=== PATIENT | male | born 1985 | race Caucasian/White ===

== ENCOUNTER 2019-08-03 14:14 | Emergency (ER) | payer MEDICAID, SELFPAY ==
[2019-08-03 14:34] VITALS: BP 128/82; PULSE 88; RESP 18; TEMP 36.8; O2SAT 97; BMI 41.5
--- NOTE | 2019-08-03 14:40 | XR_ITS ---
PROCEDURE: XR CHEST PORTABLE CLINICAL HISTORY: cough/respiratory symptoms COMPARISON: No exams were available for comparison FINDINGS: There is borderline cardiomegaly without failure. The lungs are clear without infiltrates, suspicious nodules, or pleural effusions. No acute bony abnormalities. IMPRESSION: Borderline cardiomegaly otherwise negative Dictated by: Jose Lr MD 08/03/2019 15:39 Electronically signed by Jose Lr MD in [place] 08/03/2019 15:39
[2019-08-03 14:49] LABS: Hematocrit 42.6 % (42.0-52.0); Hemoglobin 13.9 g/dL (14.1-18.0); Mean Corpuscular HGB Conc 32.7 g/dL (31.8-35.4); Mean Corpuscular Hemoglobin 31.4 pg (27.0-31.2); Mean Corpuscular Volume 96.1 fl (80-94); Mean Platelet Volume 6.9 fl (7.4-10.4); Platelet Count 370 K/mm3 (142-424); Red Blood Count 4.43 M/mm3 (4.60-6.20); Red Cell Distribution Width 14.8 % (11.5-17.5)
[2019-08-03 14:50] LABS: Basophils # 0.1 K/mm3 (0-0.2); Basophils % 0.9 % (0.1-2.0); Eosinophils # 0.3 K/mm3 (0.0-0.4); Eosinophils % 3.6 % (0.1-12.0); Lymphocytes # 2.2 K/mm3 (0.7-4.5); Lymphocytes % 27.8 % (10-50); Monocytes # 0.3 K/mm3 (0.1-1.0); Neutrophils # 5.1 K/mm3 (1.8-7.8); Neutrophils % 63.7 % (37.0-80.0)
--- NOTE | 2019-08-03 15:24 | HMH.COUGH ---
Cough Clinic HPI - History of Present Illness Complaint:: Body aches, nausea vomiting and diarrhea HPI:: 34-year-old male with several days of GI symptoms including upset stomach and diarrhea. Has also had body aches, fatigue, fever. Patient's had similar symptoms preceding his by day or 2. Complains of cough though he also smokes and states that it is baseline smoker's cough. Worse in the morning in the evening. Says he feels somewhat better today. Of note, his works at [employer] and has had remote contact with prior coronavirus cases. Onset (ago): day(s) Severity: mild Home Medications: Home Medications Medication Instructions Recorded Confirmed Type lisinopril 20 1 tab PO DAILY 12/29/17 08/03/19 History mg-hydrochlorothiazide 12.5 mg tablet Allergies/Adverse Reactions: Allergies Allergy/AdvReac Type Severity Reaction Status Date / Time No Known Drug Allergies Allergy Verified 08/03/19 14:33 NO KNOWN ALLERGIES Allergy Uncoded 09/17/18 16:19 Cough Clinic Triage - Symptoms Fever History: No Chills: No Myalgia: Yes Nasal Drainage: Yes Sore Throat: No Productive Cough: No Non-productive Cough: Yes Ear or Sinus Pain: No Joint Pain: No Chest Pain: No Rash: No Shortness of Breath: No Nausea or Vomitting: Yes (vomiting) Headache: Yes Abdominal Pain: No Diarrhea: Yes - Exposure History Foreign Travel: No Direct Contact with COVID-19 Patient: No - Risk Factors Greater than 60 Years Old: No COPD: No Diabetes: No Heart Disease: No Home Oxygen Use: No Chronic Renal Disease: No Chronic Liver Disease: No Neurologic/Neurodevelopmental/intellectual disability: No Other Chronic Diseases: No Current Smoker: Yes Former Smoker: No Cough Clinic History I have reviewed the patient's past medical history: Yes Medical History: Reports:: Anxiety, Depression, Hypertension Laterality Cases: Bilateral: Tonsillectomy, Other Amputation: No Fractures: No - Social History Smoking Status: Current every day smoker Tobacco Type: cigarettes # Packs/Day (cigarettes): 1 Alcohol Intake: former Substance Use Type: denies use Occupational Status: employed Housing: house Household Members: spouse, children - Psychiatric History Pschychiatric History:: Reports:: Anxiety, Depression Family Hx:: Hypertension ROS Obtained: Yes Systems reviewed as appropriate & no additional complaints Cough Clinic Exam - General General appearance: alert, in no apparent distress - Head Head exam: atraumatic, normocephalic, normal inspection - Eye Eye exam: Present: normal appearance, PERRL, EOMI - ENT ENT exam: Present: normal exam, normal oropharynx, mucous membranes moist, TM's normal bilaterally, normal external ear exam - Neck Neck exam: Present: normal inspection, full ROM, trachea midline. Absent: meningismus, lymphadenopathy - Respiratory Respiratory exam: Present: normal lung sounds bilaterally. Absent: respiratory distress - Cardiovascular Cardiovascular exam: Present: regular rate, normal rhythm. Absent: JVD - Neurological Exam Neurological exam: Present: alert, oriented X3 Cough Clinic MDM Vital Signs: 08/03/19 14:34 08/03/19 16:04 Temperature 98.2 F 98.2 F Temperature Source Oral Temporal Artery Scan Pulse Rate 73 Pulse Rate [Brachial] 88 Respiratory Rate 18 18 Blood Pressure 143/91 H Blood Pressure [Left Arm] 128/82 Blood Pressure Mean [Left Arm] 97 Blood Pressure Source Automatic Cuff Blood Pressure Source [Left Arm] Automatic Cuff Blood Pressure Position Sitting Blood Pressure Position [Left Arm] Sitting 02 Sat by Pulse Oximetry 97 Oxygen Delivery Method Room Air - Lab Data Lab Results 08/03/19 14:45: WBC 8.0, RBC 4.43 L, Hgb 13.9 L, Hct 42.6, MCV 96.1 H, MCH 31.4 H, MCHC 32.7, RDW 14.8, Plt Count 370, MPV 6.9 L, Neut % (Auto) 63.7, Lymph % (Auto) 27.8, [place] % (Auto) 4.0, Eos % (Auto) 3.6, Baso % (Auto) 0.9, Neut # (Auto) 5.1, Lymph # (Auto) 2.2,
[2019-08-03 16:04] VITALS: BP 143/91; PULSE 73; RESP 18; TEMP 36.8
== END 2019-08-03 16:04 | disposition home or self-care (01) ==
PROVIDERS: Emergency Provider Internal Medicine Adolescent Medicine; PCP Internal Medicine Adolescent Medicine
DX: K52.9 Noninfective gastroenteritis and colitis, unspecified (principal); I10 Essential (primary) hypertension; F41.9 Anxiety disorder, unspecified; Z90.09 Acquired absence of other part of head and neck; F17.210 Nicotine dependence, cigarettes, uncomplicated
CPT/HCPCS: 36415; 71045; 85025; 87275; 87276; 99201; 99213

== ENCOUNTER 2019-10-20 07:31 | Emergency (ER) | payer MEDICAID, SELFPAY ==
[2019-10-20 07:36] VITALS: BP 176/94; PULSE 95; RESP 18; TEMP 36.6; O2SAT 97; BMI 41.5
[2019-10-20 07:56] LABS: Basophils % 0.6 % (0.1-2.0); Eosinophils # 0.2 K/mm3 (0.0-0.4); Hemoglobin 16.5 g/dL (14.1-18.0); Lymphocytes # 2.2 K/mm3 (0.7-4.5); Lymphocytes % 27.8 % (10-50); Mean Corpuscular HGB Conc 36.6 g/dL (31.8-35.4); Mean Corpuscular Hemoglobin 33.2 pg (27.0-31.2); Mean Corpuscular Volume 90.8 fl (80-94); Mean Platelet Volume 7.3 fl (7.4-10.4); Monocytes # 0.2 K/mm3 (0.1-1.0); Monocytes % 2.7 % (1.7-9.3); Neutrophils # 5.2 K/mm3 (1.8-7.8); Neutrophils % 66.8 % (37.0-80.0); Platelet Count 235 K/mm3 (142-424); Red Blood Count 4.95 M/mm3 (4.60-6.20); Red Cell Distribution Width 14.4 % (11.5-17.5); White Blood Count 7.8 K/mm3 (4.8-10.8)
[2019-10-20 08:00] LABS: Chloride 97 mmol/L (98-107); Sodium 139 mmol/L (136-145)
[2019-10-20 08:01] LABS: Potassium 2.9 mmoL/L (3.5-5.1)
[2019-10-20 08:03] LABS: Alanine Aminotransferase 59 U/L (12-78); Alkaline Phosphatase 68 U/L (38-126); Anion Gap 13.9 mEq/L (5-15); Aspartate Amino Transferase 84 U/L (17-59); Bilirubin,Total 0.7 mg/dl (0.2-1.3); Blood Urea Nitrogen 11 mg/dl (9-20); Calcium 8.8 mg/dl (8.4-10.2); Carbon Dioxide 31 mmol/L (22.0-30.0); Creatinine Clearance Estimated 103 mL/min (50-200); Estimated Glomerular Filt Rate 98 ml/min (>60); GFR (African American) 118 ML/MIN (>60); Glucose 98 mg/dl (74-100)
[2019-10-20 08:04] LABS: Albumin Level 4.4 g/dl (3.5-5.0); Albumin/Globulin Ratio 1.3 (1.1-1.8); Globulin 3.4 g/dL (1.3-3.2); Total Protein,Serum 7.8 g/dl (6.3-8.2)
--- NOTE | 2019-10-20 08:10 | PC.NURSE ---
notified ER MD of potassium level
--- NOTE | 2019-10-20 08:15 | PC.NURSE ---
notified lab of new orders
[2019-10-20 08:25] LABS: Amylase 81 U/L (30-110); Lipase 123 U/L (23-300)
--- NOTE | 2019-10-20 08:44 | HMH.EDNVD ---
ED Disposition Clinical Impression: Gastroenteritis, Acute gastroenteritis Disposition: Home, Self-Care Condition on Discharge: Good Instructions: DI for Nausea -- Adult, DI for Nausea -- Child, DI for Diarrhea and Traveler's Diarrhea -- Adult, DI for Diarrhea and Traveler's Diarrhea -- Child Prescriptions: Promethazine HCl 50 mg PO TID 6 Days #20 tab Transmission Status: Pending to [facility] [facility] #[id number] Referrals: Provider,Referral, [Primary Care Provider] - - Critical Care Critical Care Time: No Attestation: On 10/20/19, the high probability of a clinically significant, sudden or life threatening deterioration of the following system(s) required my full and direct attention, intervention and personal management. The time I documented below is in addition to time spent performing reported procedures but includes the following listed in this critical care notation. Medical Decision Making - Medical Records Medical records reviewed: Yes: I reviewed the patient's medical records. - Naman Inquiry Pt receiving controlled substance: No Vital Signs: 10/20/19 07:36 Temperature 97.9 F Temperature Source Oral Pulse Rate [Right Radial] 95 H Respiratory Rate 18 Blood Pressure [Right Arm] 176/94 H Blood Pressure Mean [Right Arm] 121 Blood Pressure Source [Right Arm] Automatic Cuff Blood Pressure Position [Right Arm] Sitting 02 Sat by Pulse Oximetry 97 Oxygen Delivery Method Room Air - Lab Data Lab Results 10/20/19 07:50: WBC 7.8, RBC 4.95, Hgb 16.5, Hct 45.0, MCV 90.8, MCH 33.2 H, MCHC 36.6 H, RDW 14.4, Plt Count 235, MPV 7.3 L, Neut % (Auto) 66.8, Lymph % (Auto) 27.8, [place] % (Auto) 2.7, Eos % (Auto) 2.0, Baso % (Auto) 0.6, Neut # (Auto) 5.2, Lymph # (Auto) 2.2, [place] # (Auto) 0.2, Eos # (Auto) 0.2, Baso # (Auto) 0.0 10/20/19 07:50: Sodium 139, Potassium 2.9 L*, Chloride 97 L, Carbon Dioxide 31 H, Anion Gap 13.9, BUN 11, Creatinine 0.90, Estimated Creat Clear 103, Estimated GFR 98, Est GFR ( Amer) 118, Glucose 98, Calcium 8.8, Total Bilirubin 0.7, AST 84 H, ALT 59, Alkaline Phosphatase 68, Total Protein 7.8, Albumin 4.4, Globulin 3.4 H, Albumin/Globulin Ratio 1.3 10/20/19 07:50: Amylase 81, Lipase 123 Result diagrams: 10/20/19 07:50 10/20/19 07:50 Orders (Tests/Meds): ED MEDICATIONS Generic Name Dose Route Start Last Admin Trade Name Freq PRN Reason Stop Dose Admin Sodium Chloride 1,000 mls @ 999 mls/hr 10/20/19 07:45 10/20/19 07:52 Sod Chlor 0.9% 1000ml Bag IV 10/20/19 08:45 999 mls/hr .Q1H1M OLIVIA Administration Discontinued Medications Generic Name Dose Route Start Last Admin Trade Name Freq PRN Reason Stop Dose Admin Ondansetron HCl 4 mg 10/20/19 07:44 10/20/19 07:52 Zofran 4mg/2ml Vial IV 10/20/19 07:45 4 mg ONCE ONE Administration ORDERS Category Date Time Status Diarrhea 23 Panel, PCR Stat Lab 10/20/19 07:44 Ordered Medical Decision Narrative: Patient improved with antibiotics Nausea/Vomiting/Diarrhea HPI - General Chief complaint: Nausea/Vomiting/Diarrhea Stated complaint: Vomiting and diarrhea Time Seen by Provider: 10/20/19 08:45 Mode of Arrival: Ambulatory Source of Information: Patient Limitations: No Limitations Description of Symptoms (Recalled from ER Triage Doc. by RN): Pt reports vomitting and diarrhea x3 days. Pt reports 3 episodes of vomitting and diarrhea today. Pt denies presence of pain - History of Present Illness MD complaint: nausea, vomiting Onset (ago): day(s) (48hrs) Description of Vomiting: food contents, watery Description of Diarrhea: water Associated Abdominal Pain: No Severity: mild Severity scale (1-10): 3 Consistency: constant Relieving factors: none Exacerbating factors: none Context: possible food poisoning - Related Data Home Medications Medication Instructions Recorded Confirmed lisinopril 20 1 tab PO DAILY 12/29/17 08/03/19 mg-hydrochlorothiazide 12.5 mg tablet Prev
[2019-10-20 09:03] VITALS: BP 151/90; PULSE 91; RESP 16; O2SAT 97
[2019-10-20 09:08] VITALS: BP 151/90; PULSE 101; O2SAT 98
[2019-10-20 09:28] VITALS: BP 159/100; PULSE 77; RESP 16; TEMP 36.6; O2SAT 97
== END 2019-10-20 09:29 | disposition home or self-care (01) ==
PROVIDERS: Family Medicine; Emergency Provider Emergency Medicine
DX: K52.9 Noninfective gastroenteritis and colitis, unspecified (principal); F41.8 Other specified anxiety disorders; I10 Essential (primary) hypertension; F17.210 Nicotine dependence, cigarettes, uncomplicated
CPT/HCPCS: 80053; 82150; 83690; 85025; 96365; 96375; 99283; J2405

== ENCOUNTER 2020-02-15 12:17 | Emergency (ER) | payer MEDICAID, SELFPAY ==
[2020-02-15 12:28] VITALS: BP 140/90; PULSE 71; RESP 20; TEMP 36.7; O2SAT 96; BMI 26.6
--- NOTE | 2020-02-15 12:45 | HMH.EDUTC ---
[facility] [place] Disposition Clinical Impression: Sinusitis Qualifiers: Sinusitis location: unspecified location Chronicity: acute Recurrence: non-recurrent Qualified Code(s): J01.90 - Acute sinusitis, unspecified Disposition: Home, Self-Care Condition on Discharge: Good Instructions: Sinusitis, DI for Sinusitis Additional Instructions: Drink plenty of fluids. Take tylenol or ibuprofen for pain or fever. Take the medications as directed. Follow up with your regular doctor. GO TO THE ER FOR ANY WORSENING SYMPTOMS Prescriptions: Brompheniramine/Pseudoephed/Dm [Bromfed Dm Cough Syrup] 5 ml PO Q6HP PRN #240 syrup PRN Reason: Cough Transmission Status: Received by [facility] methylPREDNISolone [Medrol] 4 mg PO DIRECTED 6 Days #21 tab.ds.pk Transmission Status: Received by [facility] Azithromycin [Z-Toro 250mg Tab*] 250 mg PO UD DOSE PK #6 tab Transmission Status: Received by [facility] Referrals: Alfredo Conrad MD [Primary Care Provider] - Forms: Work/School Release Time of Disposition: 12:47 Medical Decision Making - Medical Records Medical records reviewed: No: I reviewed the patient's medical records. - Naman Inquiry Pt receiving controlled substance: No Vital Signs: 02/15/20 12:28 02/15/20 12:57 Temperature 98.1 F 98.1 F Temperature Source Oral Oral Pulse Rate 71 Pulse Rate [Radial] 71 Respiratory Rate 20 20 Blood Pressure 140/90 Blood Pressure [Right Arm] 140/90 Blood Pressure Mean [Right Arm] 106 Blood Pressure Source Automatic Cuff Blood Pressure Source [Right Arm] Automatic Cuff Blood Pressure Position Sitting Blood Pressure Position [Right Arm] Sitting 02 Sat by Pulse Oximetry 96 Oxygen Delivery Method Room Air Room Air Orders (Tests/Meds): ORDERS Category Date Time Status Covid-19 Nasal PCR ([facility]) Routine Lab 02/15/20 12:50 Received [facility] [place] HPI - General Stated complaint: possible sinus infection Time Seen by Provider: 02/15/20 12:35 Mode of Arrival: Ambulatory Source of Information: Patient Limitations: No Limitations Description of Symptoms (Recalled from Triage Doc. by RN): possible sinus infection x 2 days. HEENT Symptoms (Recalled from RN notes): Yes Resp Symptoms (Recalled from RN notes): No Skin Symptoms (Recalled from RN notes): No MS Symptoms (Recalled from RN notes): No Functional Status (Recalled from RN notes): wnl - History of Present Illness Provider Complaint: He states that for the past 2 days he has been having nasal drainage, sore throat, chilling but no fever. His coworker has had similar symptoms, but he denies any exposure to covid. - Related Data Home Medications Medication Instructions Recorded Confirmed lisinopril 20 1 tab PO DAILY 12/29/17 08/03/19 mg-hydrochlorothiazide 12.5 mg tablet Previous Rx's Medication Instructions Recorded Potassium Chloride 20 meq PO BID 5 Days #10 tablet.er 10/20/19 Promethazine HCl 50 mg PO TID 6 Days #20 tab 10/20/19 Azithromycin [Z-Toro 250mg Tab*] 250 mg PO UD DOSE PK #6 tab 02/15/20 Brompheniramine/Pseudoephed/Dm 5 ml PO Q6HP PRN #240 syrup 02/15/20 [Bromfed Dm Cough Syrup] methylPREDNISolone [Medrol] 4 mg PO DIRECTED 6 Days #21 02/15/20 tab.ds.pk Allergies Allergy/AdvReac Type Severity Reaction Status Date / Time No Known Drug Allergies Allergy Verified 08/03/19 14:33 NO KNOWN ALLERGIES Allergy Uncoded 09/17/18 16:19 - Worker's Comp Is this a Worker's Comp case?: No [facility] History - Hepatitis A Screen Drug use history?: No High risk sexual behaviors?: No History of sexually transmitted infection?: No Currently employed?: No Childcare worker?: No Do you have indoor plumbing?: Yes Do you have electricity?: Yes Attestation statement:: This patient has been screened for Hepatitis A risk factors. I have reviewed the patient's past medical history: Yes Medical History: Reports:: Anxiety, Depressio
[2020-02-15 12:57] VITALS: BP 140/90; PULSE 71; RESP 20; TEMP 36.7; O2SAT 96
== END 2020-02-15 12:58 | disposition home or self-care (01) ==
PROVIDERS: Emergency Provider Nurse Practitioner Family; PCP Internal Medicine Adolescent Medicine
DX: Z20.828 Contact with and (suspected) exposure to other viral communicable diseases (principal); J01.90 Acute sinusitis, unspecified; I10 Essential (primary) hypertension; F41.8 Other specified anxiety disorders; F17.210 Nicotine dependence, cigarettes, uncomplicated
CPT/HCPCS: 99201; U0003

== ENCOUNTER 2020-06-11 05:20 | Observation (INO) | payer OTHER, SELFPAY ==
[2020-06-11] VITALS (10 sets, daily range): BP systolic 144–200; BP diastolic 75–107; PULSE 57–83; RESP 14–20; TEMP 36.4–36.7; O2SAT 93–99; BMI 41.5; BMI 43.6
--- NOTE | 2020-06-11 05:15 | ECG_ITS ---
APPROVED REPORT Exam: Resting ECG HR:99 bpm ECG Measurements Heart Rate 99 AXES WI 152 P 79 QRSd 108 QRS 49 QT 390 T 25 QTc 500 Conclusion Normal sinus rhythm Cannot rule out Inferior infarct, age undetermined Prolonged QT Abnormal ECG Electronically signed by : Alfredo Conrad, 06/11/2020 17:46:26
--- NOTE | 2020-06-11 05:25 | XR_ITS ---
PROCEDURE: XR CHEST 2V CLINICAL HISTORY: cp Chest pain COMPARISON: CR XR CHEST PORTABLE from 08/03/2019 FINDINGS: The cardiomediastinal silhouette and pulmonary vascularity are within normal limits. The lungs are clear without infiltrates, suspicious nodules, or pleural effusions. No acute bony abnormalities. IMPRESSION: No acute findings. Dictated by: Jose Lr MD 06/11/2020 05:55 Jose Lr MD in [place] 06/11/2020 05:55
[2020-06-11 05:49] LABS: Basophils # 0.1 K/mm3 (0-0.2); Basophils % 0.7 % (0.1-2.0); Eosinophils # 0.2 K/mm3 (0.0-0.4); Eosinophils % 2.9 % (0.1-12.0); Hematocrit 43.7 % (42.0-52.0); Hemoglobin 14.5 g/dL (14.1-18.0); Lymphocytes # 1.8 K/mm3 (0.7-4.5); Lymphocytes % 29.1 % (10-50); Mean Corpuscular HGB Conc 33.2 g/dL (31.8-35.4); Mean Corpuscular Hemoglobin 33.6 pg (27.0-31.2); Mean Corpuscular Volume 101.1 fl (80-94); Mean Platelet Volume 7.2 fl (7.4-10.4); Monocytes # 0.3 K/mm3 (0.1-1.0); Monocytes % 4.6 % (1.7-9.3); Neutrophils # 3.9 K/mm3 (1.8-7.8); Neutrophils % 62.7 % (37.0-80.0); Platelet Count 228 K/mm3 (142-424); Red Blood Count 4.32 M/mm3 (4.60-6.20); Red Cell Distribution Width 15.9 % (11.5-17.5); White Blood Count 6.3 K/mm3 (4.8-10.8)
[2020-06-11 05:50] LABS: Chloride 101 mmol/L (98-107); Sodium 141 mmol/L (136-145)
[2020-06-11 05:53] LABS: Anion Gap 9.7 mEq/L (5-15); Blood Urea Nitrogen 8 mg/dl (9-20); Calcium 9.4 mg/dl (8.4-10.2); Carbon Dioxide 33 mmol/L (22.0-30.0); Creatinine Clearance Estimated 114 mL/min (50-200); Estimated Glomerular Filt Rate 111 ml/min (>60); GFR (African American) 135 ML/MIN (>60); Glucose 114 mg/dl (74-100)
[2020-06-11 06:00] LABS: Potassium 2.7 mmoL/L (3.5-5.1)
--- NOTE | 2020-06-11 06:01 | PC.NURSE ---
dayron notified of critical potassium level
[2020-06-11 06:08] LABS: Troponin I 0.04 ng/ml (0.00-0.034)
[2020-06-11 06:13] LABS: Procalcitonin 0.035 ng/mL (0.0-2.0)
--- NOTE | 2020-06-11 06:19 | ECG_ITS ---
APPROVED REPORT Exam: Resting ECG HR:58 bpm ECG Measurements Heart Rate 58 AXES IN 152 P 48 QRSd 104 QRS 32 QT 494 T -6 QTc 484 Conclusion Sinus bradycardia Minimal voltage criteria for LVH, may be normal variant Cannot rule out Inferior infarct, age undetermined Abnormal ECG Electronically signed by : Alfredo Conrad, 06/11/2020 17:46:23
--- NOTE | 2020-06-11 06:35 | HMH.EDCP ---
ED Disposition Clinical Impression: Tobacco use, Hypertensive urgency Chest pain Qualifiers: Chest pain type: precordial pain Qualified Code(s): R07.2 - Precordial pain Obesity Qualifiers: Obesity type: due to excess calories Obesity classification: adult class 3 (BMI >= 40) Serious obesity comorbidity presence: with serious comorbidity Body mass index: BMI 40.0-44.9 Qualified Code(s): E66.01 - Morbid (severe) obesity due to excess calories; Z68.41 - Body mass index [BMI]40.0-44.9, adult Disposition: Admitted as Observation Condition on Discharge: Good - Critical Care Critical Care Time: No Attestation: On 06/11/20, the high probability of a clinically significant, sudden or life threatening deterioration of the following system(s) required my full and direct attention, intervention and personal management. The time I documented below is in addition to time spent performing reported procedures but includes the following listed in this critical care notation. Medical Decision Making - Medical Records Medical records reviewed: Yes: I reviewed the patient's medical records. - Naman Inquiry Pt receiving controlled substance: No Vital Signs: 06/11/20 05:21 06/11/20 05:35 Temperature 97.6 F Temperature Source Oral Pulse Rate [Right] 77 77 Respiratory Rate 14 Blood Pressure [Right Arm] 200/102 H 144/75 H Blood Pressure Mean [Right Arm] 134 98 Blood Pressure Source [Right Arm] Manual Cuff/ Auscultation 02 Sat by Pulse Oximetry 99 97 Oxygen Delivery Method Room Air - Lab Data Lab results reviewed: Yes: I reviewed the patient's lab results. Lab Results 06/11/20 05:25: WBC 6.3, RBC 4.32 L, Hgb 14.5, Hct 43.7, MCV 101.1 H, MCH 33.6 H, MCHC 33.2, RDW 15.9, Plt Count 228, MPV 7.2 L, Neut % (Auto) 62.7, Lymph % (Auto) 29.1, [place] % (Auto) 4.6, Eos % (Auto) 2.9, Baso % (Auto) 0.7, Neut # (Auto) 3.9, Lymph # (Auto) 1.8, [place] # (Auto) 0.3, Eos # (Auto) 0.2, Baso # (Auto) 0.1 06/11/20 05:25: Sodium 141, Potassium 2.7 L*, Chloride 101, Carbon Dioxide 33 H, Anion Gap 9.7, BUN 8 L, Creatinine 0.80, Estimated Creat Clear 114, Estimated GFR 111, Est GFR ( Amer) 135, Glucose 114 H, Calcium 9.4, Troponin I 0.04 H, C-Reactive Protein 1.0, Procalcitonin 0.035 06/11/20 05:25: Triglycerides 281 H, Cholesterol 215 H, VLDL Cholesterol 56 H, HDL Cholesterol 80 H, Cholesterol/HDL Ratio 2.7 Result diagrams: 06/11/20 05:25 06/11/20 05:25 Orders (Tests/Meds): ED MEDICATIONS Generic Name Dose Route Start Last Admin Trade Name Freq PRN Reason Stop Dose Admin Sodium Chloride 1,000 mls @ 999 mls/hr 06/11/20 05:30 06/11/20 05:30 Sod Chlor 0.9% 1000ml Bag IV 06/11/20 06:30 999 mls/hr .Q1H1M OLIVIA Administration Nitroglycerin 0.4 mg 06/11/20 05:25 06/11/20 05:33 Nitroglycerin 0.4mg Sl Tablet SL 07/11/20 05:24 0.4 mg Q5MINP PRN Administration Chest Pain Discontinued Medications Generic Name Dose Route Start Last Admin Trade Name Freq PRN Reason Stop Dose Admin Aspirin 324 mg 06/11/20 05:25 06/11/20 05:27 Aspirin 81mg Chewable Tablet PO 06/11/20 05:26 324 mg ONCE ONE Administration Nitroglycerin 1 gm 06/11/20 05:36 06/11/20 05:55 Nitroglycerin 1 Gm Ointment TD 06/11/20 05:37 1 gm ONCE ONE Administration Potassium Chloride 40 meq 06/11/20 06:01 06/11/20 06:03 Potassium Chloride 20meq Tab PO 06/11/20 06:02 40 meq ONCE ONE Administration ORDERS Category Date Time Status Consult to Cardiology [CONS] Routine Cons 06/11/20 06:55 Active Complete Blood Count Auto Diff Stat Lab 06/11/20 05:25 Results Covid-19 Nasal PCR ([facility]) Routine Lab 06/11/20 05:28 Received Erythrocyte Sedimentation Rate Stat Lab 06/11/20 05:25 Results Lipid Panel Stat Lab 06/11/20 05:25 Results Troponin I Q3H Lab 06/11/20 08:30 Ordered Troponin I Q3H Lab 06/11/20 11:30 Ordered CA echo doppler complete Routine Y 06/11/20 06:53 Ordered - Radiology Data #1 Image
--- NOTE | 2020-06-11 06:53 | CA_ITS ---
APPROVED REPORT EXAM: Comprehensive 2D, Doppler, and color-flow Echocardiogram Color Worker: Ellen Capellan RVT Ht: 5 ft 5 in Wt: 250lbs BSA: 2.17 BP: 201/110 mmHg Indications: CP,OBESITY,HTN,SMOKER TDS-PT BODY HABITUS 2D Dimensions LVOT 2.90 cm (M/F) 1.5-2.5 M-Mode Dimensions RVDd 2.55 cm (0.9-2.6) LA Diam 3.41 cm (1.9-4.0) LVDd 5.54 cm (3.5-5.7) Ao Diam 2.85 cm (2.0-3.7) LVDs 3.93 cm (3.5-5.7) IVSd 0.76 cm (0.6-1.1) PWd 0.98 cm (0.6-1.1) EF (Teich) 55.20% FS 29.10% EDV (Teich) 149.90 mL ESV (Teich) 67.10 mL LV Diastology E Decel Time 153.00 (160-240 msec) E/A Ratio 1.5 MED E' 7.60 (< 7 cm/sec) E'/MED E' Ratio 12.78 (>14) LAT E' 7.90 (<10 cm/sec) E/LAT E' Ratio 12.29 (>14) Aortic Valve AO Peak GR. 4.00 mmHg Mitral Valve MV E Max [place]. 97.00 (40-130 cm/s) MV A Velocity 63.00 (40-130 cm/s) E/A Ratio 1.54 MV Decel. Time 153.00 (160-240 ms) MV PHT 45.00 ms Pulmonary Valve PV Peak Velocity 99.00 (50-150 cm/s) Tricuspid Valve TR P. Velocity 267.00 cm/s RAP Estimate 10.00 mmHg RVSP 38.40 mmHg Left Ventricle Left atrium is normal size, left ventricle is normal size, there is no concentric left ventricular hypertrophy, visually estimated ejection fraction 55% with no regional wall motion abnormality, diastolic parameters are inconclusive. Right Ventricle Right atrium and right ventricle are normal size and contractility. Aortic Valve Aortic valve is grossly normal, there is no aortic stenosis or aortic insufficiency. Mitral Valve Mitral valve is grossly normal, there is trace mitral regurgitation. Tricuspid Valve Tricuspid valve grossly normal, there is trace tricuspid regurgitation. Pulmonic Valve Pulmonic valve is poorly visualized. Great Vessels Aortic root is normal size. Pericardium No significant pericardial effusion noted. Conclusion 1. Normal left ventricular size, preserved left ventricular systolic function, visually estimated ejection fraction 55% with no regional wall motion abnormality, diastolic parameters are inconclusive. 2. Trace mitral and tricuspid regurgitation. 3. No significant pericardial effusion noted. Electronically signed by : Adolfo Cameron, 06/12/2020 13:07:49
--- NOTE | 2020-06-11 07:04 | PC.NURSE ---
vascular @ bedside for echo
[2020-06-11 07:08] LABS: Chol/HDL Ratio 2.7 (1-3.5); Cholesterol 215 mg/dl (140-200); HDL Cholesterol 80 mg/dl (40-60); Triglycerides 281 mg/dl (30-150); VLDL Cholesterol 56 mg/dL (0-40)
[2020-06-11 07:19] LABS: Direct LDL Cholesterol 73.74 mg/dL (100-129)
[2020-06-11 07:52] LABS: Erythrocyte Sedimentation Rate 21 mm/hr (0-15)
--- NOTE | 2020-06-11 08:54 | PC.NURSE ---
[facility] in with
[2020-06-11 08:59] LABS: Troponin I 0.02 ng/ml (0.00-0.034)
--- NOTE | 2020-06-11 09:03 | HMH.HP ---
*Admission Date: 06/11/20 *Chief complaint: Chest pain *History of present illness: 35-year-old white male with morbid obesity, tobacco use disorder who presented to the emergency department after some left-sided chest pain after lifting some items at work. Noticed that it was worse when he laid back. He became concerned, came to the emergency department. Initial troponin level was 0.04, given his risk factors and slightly elevated troponin level he was admitted for risk stratification and further evaluation. On my examination this morning he was much more comfortable and denied pain when he was sitting up straight. [facility] History I have reviewed the patient's past medical history: Yes Medical History: Reports:: Anxiety, Depression, Hypertension Denies:: Diabetes Mellitus Type 1, Diabetes Mellitus Type 2 *Have you ever received a pneumonia vaccine?: No *Have you received a flu vaccine this season?: No Laterality Cases: Bilateral: Tonsillectomy, Other Amputation: No Fractures: No - *Social History Smoking Status: Current every day smoker Tobacco Type: cigarettes # Packs/Day (cigarettes): 1 Alcohol Intake: never Substance Use Type: denies use *Occupational Status:: employed Housing: house Household Members: spouse, children *Travel in the last 8 weeks: None - Psychiatric History Pschychiatric History:: Reports:: Anxiety, Depression Family Hx:: Hypertension Review of Systems - Review of Systems Review of systems:: pertinent systems reviewed and negative unless documented below - *Neurologic Denies localized weakness, Denies tingling/numbness/burning sensations, Denies seizure-like activity, Denies sensory deficit Meds Home Medications Medication Instructions Recorded Confirmed Type lisinopril 20 1 tab PO DAILY 12/29/17 06/11/20 History mg-hydrochlorothiazide 12.5 mg tablet Omeprazole [Omeprazole 40mg 40 mg PO DAILY 06/11/20 06/11/20 History Capsule] Allergies Allergy/AdvReac Type Severity Reaction Status Date / Time No Known Drug Allergies Allergy Verified 06/11/20 06:00 NO KNOWN ALLERGIES Allergy Uncoded 09/17/18 16:19 Exam Vital signs and Labs for Last 24 Hours: Temp Pulse Resp BP Pulse Ox 97.6 F 68 18 169/96 H 94 L 06/11/20 05:21 06/11/20 08:10 06/11/20 08:10 06/11/20 08:10 06/11/20 08:10 Laboratory Results - last 24 hr 06/11/20 05:25: WBC 6.3, RBC 4.32 L, Hgb 14.5, Hct 43.7, MCV 101.1 H, MCH 33.6 H, MCHC 33.2, RDW 15.9, Plt Count 228, MPV 7.2 L, Neut % (Auto) 62.7, Lymph % (Auto) 29.1, [place] % (Auto) 4.6, Eos % (Auto) 2.9, Baso % (Auto) 0.7, Neut # (Auto) 3.9, Lymph # (Auto) 1.8, [place] # (Auto) 0.3, Eos # (Auto) 0.2, Baso # (Auto) 0.1, ESR 21 H 06/11/20 05:25: Sodium 141, Potassium 2.7 L*, Chloride 101, Carbon Dioxide 33 H, Anion Gap 9.7, BUN 8 L, Creatinine 0.80, Estimated Creat Clear 114, Estimated GFR 111, Est GFR ( Amer) 135, Glucose 114 H, Calcium 9.4, Troponin I 0.04 H, C-Reactive Protein 1.0, Procalcitonin 0.035 06/11/20 05:25: Triglycerides 281 H, Cholesterol 215 H, LDL Cholesterol Direct 73.74 L, VLDL Cholesterol 56 H, HDL Cholesterol 80 H, Cholesterol/HDL Ratio 2.7 06/11/20 08:20: Troponin I 0.02 I & O for Last 24 hours: Intake & Output 06/08/20 06/09/20 06/10/20 06/11/20 11:59 11:59 11:59 11:59 Weight 250 lb - *Routine HEENT Exam Head: Present: normocephalic Eye: Present: EOMI, PERRL ENT: Present: mucous membranes moist - *Routine Neck Exam Present: supple. Absent: lymphadenopathy - *Routine Respiratory Exam Present: CTA bilaterally - *Routine Cardiovascular Exam Present: RRR - *Routine Abdominal Exam Present: soft, normoactive bowel sounds. Absent: tenderness - *Routine Extremities Exam Absent: cyanosis, clubbing, edema - *Routine Skin Exam Present: warm. Absent: rash - *Routine Neurological Exam Present: alert, oriented X3 Assessment and Plan (1) Chest pain Status: Acute Qualifiers: Chest pain ty
--- NOTE | 2020-06-11 09:09 | NM_ITS ---
APPROVED REPORT Exam: Nuclear Stress Test Indication: HTN, TOB USE, C.P., FATIGUE Patient Location: Inpatient Stress Tech: Karenalexis Sherwood MD Tech:Hanh StCAIO RT (R)(N)(M) Ht: 5 ft 4 in Wt: 260 lbs HR: 71 bpm BP: 180/96 mmHg BSA: 2.19 m2 BMI: 44.6 History: HTN, TOB USE, C.P., FATIGUE Procedure: Patient received a 0.4 mg of intravenous Lexiscan, resting heart rate 71 bpm, resting blood pressure 180/96 mmHg, with Lexiscan maximum heart rate achived was 100 bpm which is % of the maximum predicted heart rate and blood pressure was 163/96 mmHg. With Lexiscan, patient denied any complaint of chest pain. Cardiac Stress and Resting SPECT Images: Cardiac Stress and Resting SPECT images were obtained using technetium 99m Myoview 31.9 mCi stress and 10.16 mCi at rest. Low EF of 46% Reversible defect in the septum near thw base of the heart suggesting an area of ischemia Conclusion: Low EF of 46% Reversible defect in the septum near the base of the heart suggesting an area of ischemia Electronically signed by : Jose Lr MD 06/11/2020 17:35:58
--- NOTE | 2020-06-11 09:52 | HMH.CNCARD ---
History of Present Illness Consult date: 06/11/20 Requesting physician: Alfredo Conrad Consult reason: chest pain Chief complaint: chest pain History of present illness: This is a 35-year-old white gentleman who presented to the emergency department with complaints of chest pain. The patient states that he was having left-sided chest pain that he describes as an aching sensation. He states for the last week or so his left shoulder has been bothering him from heavy lifting at work and then last night he began to have the pain radiating in his chest. He states that this was an aching sensation and that with repositioning he can usually get the chest pain to stop. He states that the pain at its worse was about a 5 out of 10 in intensity. He states that he has shortness of breath with deep breaths only. He states that when he laid down he noticed that the pain was worse. He came to the emergency department because he was not sure if this was a musculoskeletal chest pain or if this could be a cardiac chest pain. His initial troponin was 0.04 and his repeat troponin was down to 0.02. His chest pain did alleviate with nitroglycerin. He denies any fever, chills, nausea, vomiting, diarrhea, PND or orthopnea. The patient denies a family history of coronary artery disease or [place]. He does have a personal history of hypertension and is a 1 to 1-1/2 pack/day smoker. He denies any hyperlipidemia or diabetes. [facility] History I have reviewed the patient's past medical history: Yes Medical History: Reports:: Anxiety, Depression, Hypertension Denies:: Diabetes Mellitus Type 1, Diabetes Mellitus Type 2 *Have you ever received a pneumonia vaccine?: No *Have you received a flu vaccine this season?: No Laterality Cases: Bilateral: Tonsillectomy, Other Amputation: No Fractures: No - *Social History Smoking Status: Current every day smoker Tobacco Type: cigarettes # Packs/Day (cigarettes): 1 Alcohol Intake: never Substance Use Type: denies use *Occupational Status:: employed Housing: house Household Members: spouse, children *Travel in the last 8 weeks: None - Psychiatric History Pschychiatric History:: Reports:: Anxiety, Depression Family Hx:: Diabetes, Hypertension Meds Home Medications Medication Instructions Recorded Confirmed Type lisinopril 20 1 tab PO DAILY 12/29/17 06/11/20 History mg-hydrochlorothiazide 12.5 mg tablet Omeprazole [Omeprazole 40mg 40 mg PO DAILY 06/11/20 06/11/20 History Capsule] Allergies Allergy/AdvReac Type Severity Reaction Status Date / Time No Known Drug Allergies Allergy Verified 06/11/20 06:00 NO KNOWN ALLERGIES Allergy Uncoded 09/17/18 16:19 Exam Vital signs and Labs for Last 24 Hours: Temp Pulse Resp BP Pulse Ox 97.6 F 68 18 169/96 H 94 L 06/11/20 05:21 06/11/20 08:10 06/11/20 08:10 06/11/20 08:10 06/11/20 08:10 Laboratory Results - last 24 hr 06/11/20 05:25: WBC 6.3, RBC 4.32 L, Hgb 14.5, Hct 43.7, MCV 101.1 H, MCH 33.6 H, MCHC 33.2, RDW 15.9, Plt Count 228, MPV 7.2 L, Neut % (Auto) 62.7, Lymph % (Auto) 29.1, [place] % (Auto) 4.6, Eos % (Auto) 2.9, Baso % (Auto) 0.7, Neut # (Auto) 3.9, Lymph # (Auto) 1.8, [place] # (Auto) 0.3, Eos # (Auto) 0.2, Baso # (Auto) 0.1, ESR 21 H 06/11/20 05:25: Sodium 141, Potassium 2.7 L*, Chloride 101, Carbon Dioxide 33 H, Anion Gap 9.7, BUN 8 L, Creatinine 0.80, Estimated Creat Clear 114, Estimated GFR 111, Est GFR ( Amer) 135, Glucose 114 H, Calcium 9.4, Troponin I 0.04 H, C-Reactive Protein 1.0, Procalcitonin 0.035 06/11/20 05:25: Triglycerides 281 H, Cholesterol 215 H, LDL Cholesterol Direct 73.74 L, VLDL Cholesterol 56 H, HDL Cholesterol 80 H, Cholesterol/HDL Ratio 2.7 06/11/20 08:20: Troponin I 0.02 I & O for Last 24 hours: Intake & Output 06/08/20 06/09/20 06/10/20 06/11/20 23:59 23:59 23:59 23:59 Weight 250 lb Narrative: EKG is sinus rhythm with a rate of 99 and old inferior WI pattern. - Constitutional
[2020-06-11 11:54] LABS: Troponin I 0.02 ng/ml (0.00-0.034)
--- NOTE | 2020-06-11 12:47 | PC.NURSE ---
nuclear staff states they are coming down to get pt soon
--- NOTE | 2020-06-11 12:49 | PC.NURSE ---
updated pt on POC
--- NOTE | 2020-06-11 12:54 | PC.NURSE ---
THEY WILL BE HERE TO DO MARIANA SCAN @ [phone]
--- NOTE | 2020-06-11 12:55 | PC.NURSE ---
pt to nuclear department for stress test, rad staff states pt will be gone 2-3 hours.
--- NOTE | 2020-06-11 13:24 | CA_ITS ---
APPROVED REPORT Exam: Pharmacologic Technologist: Karen Sherwood Ht: 5 ft 5 in Wt: 250 lbs BSA: 2.17 m2 HR: 71 bpm BP: 180/96 mmHg Indications: Chest pain Medical History Medications: Omeprazole,,,,, Lisinopril/HCTZ,,,,, Stress Test Details Test: LEXISCAN HR Resting HR: 64 bpm Max Heart Rate (APMHR): 187 bpm Max HR Achieved: 103 bpm Target HR (85% APMHR): 158 bpm % of APMHR: 55 Recovery HR: 70 bpm BP Resting BP: 180.0/96.0 mmHg Max BP: 180.0/96.0 mmHg Recovery BP: 175.0/87.0 mmHg ECG Clinical Exercise duration: 04:00 min Highest Stage Achieved: Stress ECG Conclusion Resting EKG: Sinus arrhythmias, small Q waves inferiorly and laterally, ST abnormalities inferiorly, incomplete right bundle branch block. Symptoms: Shortness of air, malaise. No chest pain. Arrhythmias/Ectopy: Sinus arrhythmia ST-T Changes: No significant changes. Conclusion: Unremarkable Lexiscan stress. Myoview images reported separately. Test Summary RECOVERY 03:18 . . 82 . 175/ 87 . . REST 04:15 . . 64 . 180/ 96 . . Stage 1 . . . . . . . Myoview Injected Stage 1 01:00 . . 102 . . . . Stage 2 01:00 . . 72 . . . . Stage 3 01:00 . . 60 . 163/ 96 . . Stage 4 01:00 . . 60 . 161/ 90 . Stop exercise at 04:00 RECOVERY 01:00 . . 68 . 167/ 91 . . RECOVERY 02:00 . . 58 . 167/ 91 . . RECOVERY 03:00 . . 63 . 175/ 87 . . RECOVERY 03:18 . . 82 . 175/ 87 . . Electronically signed by : Adolfo Cameron, 06/12/2020 12:25:02
--- NOTE | 2020-06-11 13:47 | HMH.PHAVTE ---
[facility] Pharmacy VTE Monitoring - Patient Demographics Admission date: 06/11/20 Report Date: 06/11/20 Time: 13:47 Allergies/Adverse Reactions: Patient Allergies No Known Drug Allergies Allergy (Verified 06/11/20 06:00) NO KNOWN ALLERGIES Allergy (Uncoded 09/17/18 16:19) Height: 1.65 m Weight: 113.398 kg Patient Problems: Current Active Problems Chest pain (Acute) Tobacco use (Acute) Hypertensive urgency (Acute) Obesity (Acute) HTN (hypertension) (Chronic) Abnormal EKG (Acute) - VTE Risk Labs: VTE Related Lab Results Hgb 14.5 g/dL (14.1-18.0) 06/11/20 05:25 Hct 43.7 % (42.0-52.0) 06/11/20 05:25 Plt Count 228 K/mm3 (142-424) 06/11/20 05:25 BUN 8 mg/dl (9-20) L 06/11/20 05:25 Creatinine 0.80 mg/dl (0.66-1.25) 06/11/20 05:25 Estimated Creat Clear 114 mL/min (50-200) 06/11/20 05:25 - Prophylaxis VTE Prophylaxis Ordered?: Yes Types of VTE Prophylaxis: TEDS Knee High Location of Applied Device: Bilateral Lower Extremeties
--- NOTE | 2020-06-11 14:07 | PC.NURSE ---
report to JAY macario at this time
[2020-06-11 16:49] LABS: Chloride 101 mmol/L (98-107)
[2020-06-11 16:50] LABS: Sodium 139 mmol/L (136-145)
[2020-06-11 16:52] LABS: Blood Urea Nitrogen 5 mg/dl (9-20); Creatinine Clearance Estimated 106 mL/min (50-200)
[2020-06-11 16:53] LABS: Calcium 9.4 mg/dl (8.4-10.2); Carbon Dioxide 33 mmol/L (22.0-30.0); Estimated Glomerular Filt Rate 111 ml/min (>60); GFR (African American) 135 ML/MIN (>60); Glucose 104 mg/dl (74-100)
[2020-06-11 16:55] LABS: Anion Gap 7.7 mEq/L (5-15); Potassium 2.7 mmoL/L (3.5-5.1)
--- NOTE | 2020-06-11 17:28 | HMH.DCSUM ---
General - General Admission date:: 06/11/20 Discharge date: 06/11/20 HPI HPI: 35-year-old white male with morbid obesity, tobacco use disorder who presented to the emergency department after some left-sided chest pain after lifting some items at work. Noticed that it was worse when he laid back. He became concerned, came to the emergency department. Initial troponin level was 0.04, given his risk factors and slightly elevated troponin level he was admitted for risk stratification and further evaluation. On my examination this morning he was much more comfortable and denied pain when he was sitting up straight. Hospital Course Hospital Course: Patient was admitted, had minimally elevated troponin levels but this did not worsen over time, he was ruled out by EKG criteria for myocardial infarction and underwent a normal imaging and Lexiscan stress test today. Persistent hypokalemia was noted but no dysrhythmia, no muscle cramping was noted, he was given another 60 mEq of potassium but wished to be discharged. Normal physical exam today, we will discharge him with low-dose potassium prescription, continue his other medications, I will see him Tuesday in my office to review his labs. Objective Vital signs: Temp Pulse Resp BP Pulse Ox 98.0 F 67 18 165/96 H 95 06/11/20 16:26 06/11/20 16:26 06/11/20 16:26 06/11/20 16:26 06/11/20 16:26 no acute distress - *Routine HEENT Exam Head: Present: normocephalic Eye: Present: EOMI, PERRL ENT: Present: mucous membranes moist - *Routine Neck Exam Present: supple - *Routine Respiratory Exam Present: CTA bilaterally - *Routine Cardiovascular Exam Present: RRR - *Routine Abdominal Exam Present: soft, normoactive bowel sounds. Absent: tenderness - *Routine Extremities Exam Absent: cyanosis, clubbing, edema - *Routine Skin Exam Present: warm. Absent: rash - Detailed Eye Exam Eyelids: Bilateral normal inspection Results Labs on day of discharge: Labs from last 24 hours 06/11/20 06/11/20 06/11/20 16:32 11:13 08:20 WBC RBC Hgb Hct MCV MCH MCHC RDW Plt Count MPV Neut % (Auto) Lymph % (Auto) [place] % (Auto) Eos % (Auto) Baso % (Auto) Neut # (Auto) Lymph # (Auto) [place] # (Auto) Eos # (Auto) Baso # (Auto) ESR Sodium 139 Potassium 2.7 L* Chloride 101 Carbon Dioxide 33 H Anion Gap 7.7 BUN 5 L D Creatinine 0.80 Estimated Creat Clear 106 Estimated GFR 111 Est GFR ( Amer) 135 Glucose 104 H Calcium 9.4 Troponin I 0.02 0.02 C-Reactive Protein Triglycerides Cholesterol LDL Cholesterol Direct VLDL Cholesterol HDL Cholesterol Cholesterol/HDL Ratio Procalcitonin 06/11/20 06/11/20 06/11/20 05:25 05:25 05:25 WBC 6.3 RBC 4.32 L Hgb 14.5 Hct 43.7 MCV 101.1 H MCH 33.6 H MCHC 33.2 RDW 15.9 Plt Count 228 MPV 7.2 L Neut % (Auto) 62.7 Lymph % (Auto) 29.1 [place] % (Auto) 4.6 Eos % (Auto) 2.9 Baso % (Auto) 0.7 Neut # (Auto) 3.9 Lymph # (Auto) 1.8 [place] # (Auto) 0.3 Eos # (Auto) 0.2 Baso # (Auto) 0.1 ESR 21 H Sodium 141 Potassium 2.7 L* Chloride 101 Carbon Dioxide 33 H Anion Gap 9.7 BUN 8 L Creatinine 0.80 Estimated Creat Clear 114 Estimated GFR 111 Est GFR ( Amer) 135 Glucose 114 H Calcium 9.4 Troponin I 0.04 H C-Reactive Protein 1.0 Triglycerides 281 H Cholesterol 215 H LDL Cholesterol Direct 73.74 L VLDL Cholesterol 56 H HDL Cholesterol 80 H Cholesterol/HDL Ratio 2.7 Procalcitonin 0.035 DS: Diagnosis - Discharge Diagnosis (1) Chest pain Status: Acute (2) Hypertensive urgency Status: Acute (3) Tobacco use Status: Acute (4) HTN (hypertension) Status: Chronic (5) Abnormal EKG Status: Acute (6) Hypokalemia Status
== END 2020-06-11 18:08 | disposition home or self-care (01) ==
LOC: ER 06:53 → 2ND 07:01
PROVIDERS: Admitting Provider Emergency Medicine; Emergency Provider Emergency Medicine; PCP Internal Medicine Adolescent Medicine; Visit Provider Internal Medicine Adolescent Medicine
DX: R07.9 Chest pain, unspecified (principal); I16.0 Hypertensive urgency; I10 Essential (primary) hypertension; E66.9 Obesity, unspecified; Z68.41 Body mass index [BMI] 40.0-44.9, adult; R94.31 Abnormal electrocardiogram [ECG] [EKG]; E87.6 Hypokalemia; Z72.0 Tobacco use; Z79.899 Other long term (current) drug therapy
CPT/HCPCS: 36415; 71046; 78452; 80048; 80061; 84145; 84484; 85025; 85651; 86140; 93005; 93017; 93306; 96365; 99284; A9502; G0378; J2785; U0003

== ENCOUNTER → 2020-06-16 10:10 | Outpatient (CLI) | payer OTHER, SELFPAY ==
[2020-06-16 11:22] LABS: Chloride 96 mmol/L (98-107); Potassium 3.2 mmoL/L (3.5-5.1); Sodium 139 mmol/L (136-145)
[2020-06-16 11:25] LABS: Anion Gap 9.2 mEq/L (5-15); Blood Urea Nitrogen 14 mg/dl (9-20); Carbon Dioxide 37 mmol/L (22.0-30.0); Estimated Glomerular Filt Rate 97 ml/min (>60); GFR (African American) 118 ML/MIN (>60); Glucose 104 mg/dl (74-100)
== END ==
PROVIDERS: Visit Provider Internal Medicine Adolescent Medicine
DX: E87.6 Hypokalemia (principal)
CPT/HCPCS: 36415; 80048

== ENCOUNTER → 2020-07-17 09:34 | Outpatient (CLI) | payer OTHER, SELFPAY ==
[2020-07-17 10:56] LABS: Chloride 98 mmol/L (98-107); Potassium 3.3 mmoL/L (3.5-5.1); Sodium 137 mmol/L (136-145)
[2020-07-17 10:59] LABS: Anion Gap 13.3 mEq/L (5-15); Blood Urea Nitrogen 14 mg/dl (9-20); Calcium 10.2 mg/dl (8.4-10.2); Carbon Dioxide 29 mmol/L (22.0-30.0); Estimated Glomerular Filt Rate 97 ml/min (>60); GFR (African American) 118 ML/MIN (>60); Glucose 94 mg/dl (74-100)
== END ==
PROVIDERS: Visit Provider Internal Medicine Adolescent Medicine
DX: E87.6 Hypokalemia (principal)
CPT/HCPCS: 36415; 80048

== ENCOUNTER 2020-12-19 12:07 | Emergency (ER) | payer SELFPAY ==
[2020-12-19 13:07] VITALS: BP 136/78; PULSE 75; RESP 18; TEMP 36.9; O2SAT 96; BMI 42.0
--- NOTE | 2020-12-19 13:27 | HMH.EDUTC ---
[facility] [place] Disposition Clinical Impression: Exposure to COVID-19 virus Sinusitis Qualifiers: Sinusitis location: unspecified location Chronicity: acute Recurrence: non-recurrent Qualified Code(s): J01.90 - Acute sinusitis, unspecified Disposition: Home, Self-Care Condition on Discharge: Good Instructions: DI for Sinusitis, Preventing the Spread of Coronavirus Discharge Instructions Additional Instructions: Drink plenty of fluids. Take tylenol or ibuprofen for pain or fever. Take the medications as directed. Follow up with your regular doctor. GO TO THE ER FOR ANY WORSENING SYMPTOMS Quarantine until you know the results of your covid-19 test. If it is positive, the health department should call you and give you further instructions about your length of Quarantine and other things. Notify your school or workplace of your results and follow their instructions regarding return to work/school. Prescriptions: methylPREDNISolone [Medrol] 4 mg PO DIRECTED 6 Days #21 packet Transmission Status: Received by [facility] guaiFENesin [Mucinex 600mg tablet] 1 - 2 tab PO BIDP PRN #30 tab PRN Reason: Congestion Transmission Status: Received by [facility] Azithromycin [Z-Toro 250mg Tab*] 250 mg PO UD DOSE PK #6 tab Transmission Status: Received by [facility] Referrals: Alfredo Conrad MD [Primary Care Provider] - Forms: Work/School Release Time of Disposition: 13:30 Medical Decision Making - Medical Records Medical records reviewed: No: I reviewed the patient's medical records. - Naman Inquiry Pt receiving controlled substance: No Vital Signs: 12/19/20 13:07 12/19/20 13:42 Temperature 98.4 F 98.4 F Temperature Source Oral Pulse Rate 75 Pulse Rate [Right Radial] 75 Respiratory Rate 18 18 Blood Pressure 136/78 Blood Pressure [Right Arm] 136/78 Blood Pressure Mean [Right Arm] 97 Blood Pressure Source [Right Arm] Automatic Cuff Blood Pressure Position [Right Arm] Sitting 02 Sat by Pulse Oximetry 96 Oxygen Delivery Method Room Air [facility] [place] HPI - General Stated complaint: possible sinus infection Time Seen by Provider: 12/19/20 13:27 - History of Present Illness Provider Complaint: He is here with complaints of having a sinus infection. He denies any fever or chills. He does have a head ache also. He has not been vaccinated against covid-19. - Related Data Home Medications Medication Instructions Recorded Confirmed lisinopril 20 1 tab PO DAILY 12/29/17 06/11/20 mg-hydrochlorothiazide 12.5 mg tablet Omeprazole [Omeprazole 40mg 40 mg PO DAILY 06/11/20 06/11/20 Capsule] Previous Rx's Medication Instructions Recorded Potassium Chloride [Klor-Con M20] 20 meq PO DAILY #30 tab.er.prt 06/11/20 Azithromycin [Z-Toro 250mg Tab*] 250 mg PO UD DOSE PK #6 tab 12/19/20 guaiFENesin [Mucinex 600mg tablet] 1 - 2 tab PO BIDP PRN #30 tab 12/19/20 methylPREDNISolone [Medrol] 4 mg PO DIRECTED 6 Days #21 12/19/20 packet Allergies Allergy/AdvReac Type Severity Reaction Status Date / Time No Known Drug Allergies Allergy Unknown Verified 06/11/20 13:49 allergy reaction [facility] History - Hepatitis A Screen Attestation statement:: This patient has been screened for Hepatitis A risk factors. I have reviewed the patient's past medical history: Yes Medical History: Reports:: Anxiety, Depression, Hypertension Denies:: Diabetes Mellitus Type 1, Diabetes Mellitus Type 2 Laterality Cases: Bilateral: Tonsillectomy, Other Amputation: No Fractures: No - Social History Smoking Status: Current every day smoker Tobacco Type: cigarettes # Packs/Day (cigarettes): 1 Alcohol Intake: never Substance Use Type: denies use Occupational Status: employed Housing: house Household Members: spouse, children - Psychiatric History Pschychiatric History:: Reports:: Anxiety, Depression Family Hx:: No significant family
[2020-12-19 13:42] VITALS: BP 136/78; PULSE 75; RESP 18; TEMP 36.9; O2SAT 96
== END 2020-12-19 13:43 | disposition home or self-care (01) ==
PROVIDERS: Emergency Provider Nurse Practitioner Family; PCP Internal Medicine Adolescent Medicine
DX: J01.90 Acute sinusitis, unspecified (principal); Z20.822 Contact with and (suspected) exposure to COVID-19; F41.8 Other specified anxiety disorders; I10 Essential (primary) hypertension; F17.210 Nicotine dependence, cigarettes, uncomplicated
CPT/HCPCS: 99202; G0463; U0003

== ENCOUNTER 2021-05-25 12:11 | Emergency (ER) | payer SELFPAY ==
[2021-05-25 14:44] VITALS: BP 144/60; PULSE 70; RESP 16; TEMP 36.8; O2SAT 97; BMI 25.7
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
[2021-05-25 15:29] VITALS: BP 144/60; PULSE 70; RESP 16; TEMP 36.8; O2SAT 97
== END 2021-05-25 15:29 | disposition home or self-care (01) ==
PROVIDERS: Emergency Provider Nurse Practitioner Family; PCP Internal Medicine Adolescent Medicine
DX: M77.8 Other enthesopathies, not elsewhere classified (principal); M79.18 Myalgia, other site
CPT/HCPCS: 73630; 99202; G0463

== ENCOUNTER 2021-08-08 14:14 | Emergency (ER) | payer SELFPAY ==
[2021-08-08] VITALS (9 sets, daily range): BP systolic 142–162; BP diastolic 73–94; PULSE 61–88; RESP 14–22; TEMP 37.1; O2SAT 94–98; BMI 45.1
--- NOTE | 2021-08-08 15:05 | CT_ITS ---
PROCEDURE INFORMATION: Exam: CT Maxillofacial With Contrast Exam date and time: 08/08/2021 4:08 PM Age: 36 years old Clinical indication: Mass, lump, or swelling; Other: Lt sided facial swelling; Additional info: Lt side facial swelling TECHNIQUE: Imaging protocol: Computed tomography images of the face with intravenous contrast. Radiation optimization: All CT scans at this facility use at least one of these dose optimization techniques: automated exposure control; mA and/or kV adjustment per patient size (includes targeted exams where dose is matched to clinical indication); or iterative reconstruction. Contrast material: ISOVUE; Contrast volume: 75 ml; Contrast route: IV; COMPARISON: No relevant prior studies available. FINDINGS: Orbital cavities: Orbits are normal. Globes are unremarkable. Bones/joints: Deviation of the nasal septum to the right. Associated 3 mm spur. Paranasal sinuses: Mucosal thickening lining the left maxillary sinus. Superimposed findings suggesting possible polyp versus retention cyst. Opacification of the maxillary sinus ostium. Left frontal sinus inflammatory changes. Soft tissues: Unremarkable. Nasal cavity: Mild hypertrophy of the inferior nasal turbinates. IMPRESSION: 1. Chronic left frontal and maxillary sinus inflammatory changes. Associated soft tissue opacification of the maxillary sinus ostium. 2. Deviation of the nasal septum to the right with 3 mm septal spur.
--- NOTE | 2021-08-08 15:08 | HMH.EDGENADL ---
ED Disposition Clinical Impression: Dental abscess Disposition: Xfer Other Condition on Discharge: Fair Referrals: Alfredo Conrad MD [Primary Care Provider] - Forms: Transfer Record - ED - Critical Care Critical Care Time: No Attestation: On 08/08/21, the high probability of a clinically significant, sudden or life threatening deterioration of the following system(s) required my full and direct attention, intervention and personal management. The time I documented below is in addition to time spent performing reported procedures but includes the following listed in this critical care notation. Medical Decision Making - Naman Inquiry Pt receiving controlled substance: No Vital Signs: 08/08/21 14:15 08/08/21 14:37 08/08/21 17:00 Temperature 98.8 F Temperature Source Oral Pulse Rate 68 65 Pulse Rate [Right Radial] 68 Respiratory Rate 16 18 18 Blood Pressure 158/73 H 162/81 H Blood Pressure [Right Arm] 158/73 H Blood Pressure Mean 130 93 Blood Pressure Mean [Right Arm] 101 Blood Pressure Source [Right Arm] Automatic Cuff Blood Pressure Position [Right Arm] Sitting 02 Sat by Pulse Oximetry 97 95 97 Oxygen Delivery Method Room Air Oxygen Flow Rate (LPM) 08/08/21 17:30 08/08/21 18:00 08/08/21 18:30 Temperature Temperature Source Pulse Rate 65 88 65 Pulse Rate [Right Radial] Respiratory Rate 18 19 17 Blood Pressure 156/82 H 143/94 H 142/84 H Blood Pressure [Right Arm] Blood Pressure Mean 106 110 103 Blood Pressure Mean [Right Arm] Blood Pressure Source [Right Arm] Blood Pressure Position [Right Arm] 02 Sat by Pulse Oximetry 94 L 96 96 Oxygen Delivery Method Oxygen Flow Rate (LPM) 08/08/21 19:00 08/08/21 19:01 08/08/21 19:35 Temperature 98.8 F Temperature Source Pulse Rate 63 61 61 Pulse Rate [Right Radial] Respiratory Rate 22 14 18 Blood Pressure 144/75 H 144/75 H 144/75 H Blood Pressure [Right Arm] Blood Pressure Mean Blood Pressure Mean [Right Arm] Blood Pressure Source [Right Arm] Blood Pressure Position [Right Arm] 02 Sat by Pulse Oximetry 98 96 Oxygen Delivery Method Nasal Cannula Room Air Nasal Cannula Oxygen Flow Rate (LPM) 2 2 - Lab Data Lab Results 08/08/21 15:35: WBC 8.0, RBC 3.88 L, Hgb 14.1, Hct 43.1, MCV 110.9 H, MCH 36.2 H, MCHC 32.6, RDW 16.2, Plt Count 280, MPV 7.9, Neut % (Auto) 78.6, Lymph % (Auto) 14.7, [place] % (Auto) 3.6, Eos % (Auto) 2.2, Baso % (Auto) 0.9, Neut # (Auto) 6.3, Lymph # (Auto) 1.2, [place] # (Auto) 0.3, Eos # (Auto) 0.2, Baso # (Auto) 0.1 08/08/21 15:35: ESR 56 H 08/08/21 15:35: Sodium 136, Potassium 2.2 L*, Chloride 90 L, Carbon Dioxide 38 H, Anion Gap 10.2, BUN 7 L, Creatinine 0.70, Estimated Creat Clear 125, Estimated GFR 129, Est GFR ( Amer) 156, Glucose 89, Calcium 7.8 L, C-Reactive Protein 34.4 H 08/08/21 17:47: SARS-CoV-2 (PCR) Not detected, Influenza A Untype (PCR) Not detected, Influenza Type B (PCR) Not detected Result diagrams: 08/08/21 15:35 08/08/21 15:35 Orders (Tests/Meds): ED MEDICATIONS Discontinued Medications Generic Name Dose Route Start Last Admin Trade Name Favio PRN Reason Stop Dose Admin Acetaminophen 1,000 mg 08/08/21 17:51 08/08/21 17:52 Acetaminophen 500mg Tab PO 08/08/21 17:52 1,000 mg ONCE ONE Administration Potassium Chloride/Water 100 mls @ 100 mls/hr 08/08/21 16:15 Potassium Chloride 10meq/100ml Ivpb IV 08/08/21 19:14 Q1H OLIVIA Potassium Chloride/Water 100 mls @ 50 mls/hr 08/08/21 16:45 08/08/21 19:57 Potassium Chloride 20meq/100ml Ivpb IV 08/08/21 20:44 50 mls/hr Q2H OLIVIA Administration Ampicillin Sodium/Sulbactam 100 mls @ 200 mls/hr 08/08/21 17:15 Sodium 3 gm/ Sodium Chloride IV 08/22/21 17:14 Q8H OLIVIA Ibuprofen 800 mg 08/08/21 17:51 08/08/21 17:52 Ibuprofen 400 Mg Tablet PO 08/08/21 17:52 800 mg ONCE ONE Administration Iopamidol 75 ml 08/08/21 16:21 08/08/21 16:22 I
[2021-08-08 15:45] LABS: Basophils # 0.1 K/mm3 (0-0.2); Basophils % 0.9 % (0.1-2.0); Eosinophils # 0.2 K/mm3 (0.0-0.4); Eosinophils % 2.2 % (0.1-12.0); Hematocrit 43.1 % (42.0-52.0); Hemoglobin 14.1 g/dL (14.1-18.0); Lymphocytes # 1.2 K/mm3 (0.7-4.5); Lymphocytes % 14.7 % (10-50); Mean Corpuscular HGB Conc 32.6 g/dL (31.8-35.4); Mean Corpuscular Hemoglobin 36.2 pg (27.0-31.2); Mean Corpuscular Volume 110.9 fl (80-94); Mean Platelet Volume 7.9 fl (7.4-10.4); Monocytes # 0.3 K/mm3 (0.1-1.0); Monocytes % 3.6 % (1.7-9.3); Neutrophils # 6.3 K/mm3 (1.8-7.8); Neutrophils % 78.6 % (37.0-80.0); Platelet Count 280 K/mm3 (142-424); Red Blood Count 3.88 M/mm3 (4.60-6.20); Red Cell Distribution Width 16.2 % (11.5-17.5)
[2021-08-08 15:55] LABS: Chloride 90 mmol/L (98-107); Sodium 136 mmol/L (136-145)
[2021-08-08 15:58] LABS: Blood Urea Nitrogen 7 mg/dl (9-20); Calcium 7.8 mg/dl (8.4-10.2); Creatinine Clearance Estimated 125 mL/min (50-200); Estimated Glomerular Filt Rate 129 ml/min (>60); GFR (African American) 156 ML/MIN (>60); Glucose 89 mg/dl (74-100)
[2021-08-08 16:04] LABS: C-Reactive Protein 34.4 mg/L (0-4)
[2021-08-08 16:07] LABS: Anion Gap 10.2 mEq/L (5-15); Carbon Dioxide 38 mmol/L (22.0-30.0)
[2021-08-08 16:08] LABS: Potassium 2.2 mmoL/L (3.5-5.1)
[2021-08-08 16:20] LABS: Erythrocyte Sedimentation Rate 56 mm/hr (0-15)
--- NOTE | 2021-08-08 16:57 | PC.NURSE ---
MDs has been called. Will call back
--- NOTE | 2021-08-08 17:17 | PC.NURSE ---
Pt c/o burning with IV potassium. Rate slowed to 30ml/hr. Pt states that it is no longer burning.
--- NOTE | 2021-08-08 17:35 | PC.NURSE ---
on the phone with [facility]
--- NOTE | 2021-08-08 17:38 | PC.NURSE ---
Called rad to [facility] pt scan to [facility]
[2021-08-08 17:52] LABS: Coronavirus 19, PCR Not Detected (NotDetected); Influenza A, PCR Not Detected (NotDetected); Influenza B, PCR Not Detected (NotDetected)
--- NOTE | 2021-08-08 18:40 | PC.NURSE ---
Called house and requested that she bring nicotine patch
--- NOTE | 2021-08-08 18:44 | PC.NURSE ---
NICOTINE PATCH PULLED FROM [facility] AND SENT TO ER THROUGH PNEUMATIC TUBE SYSTEM, JAY WEEKS NOTIFIED;
--- NOTE | 2021-08-08 19:14 | PC.NURSE ---
has been notified that patient's COVID results are back and they are negative.
== END 2021-08-08 20:08 | disposition other institution (70) ==
PROVIDERS: Emergency Provider Student in an Organized Health Care Education/Training Program; PCP Internal Medicine Adolescent Medicine
DX: K04.7 Periapical abscess without sinus (principal); S02.5XXA Fracture of tooth (traumatic), initial encounter for closed fracture; R22.0 Localized swelling, mass and lump, head; Z20.822 Contact with and (suspected) exposure to COVID-19; I10 Essential (primary) hypertension; F41.9 Anxiety disorder, unspecified; F32.A Depression, unspecified; Z79.52 Long term (current) use of systemic steroids; Z79.899 Other long term (current) drug therapy
CPT/HCPCS: 70487; 80048; 85025; 85651; 86140; 87040; 96361; 96374; 96375; 99285; C9803; J2405; Q9967; U0003; U0005

== ENCOUNTER 2021-10-20 09:39 | Emergency (ER) | payer SELFPAY ==
[2021-10-20 09:39] VITALS: BP 162/104; PULSE 109; RESP 20; TEMP 36.7; O2SAT 98; BMI 39.4
--- NOTE | 2021-10-20 09:43 | PC.NURSE ---
ED MD AT BEDSIDE
--- NOTE | 2021-10-20 09:45 | HMH.EDDIZZ ---
ED Disposition Clinical Impression: Syncope due to orthostatic hypotension, Hypokalemia Disposition: Home, Self-Care Condition on Discharge: Fair Instructions: DI for Syncope in Adults (Fainting), DI for Hypokalemia Additional Instructions: Please follow-up with your primary care doctor in the next few days. Your potassium today was very low. This may have contributed to your fainting spell. You may have to increase the dose of your potassium pills. You have been given potassium in the emergency department today but you may need to take more every day. Please talk to your doctor about this. Return to the emergency department immediately if you feel worse in any way. Drink plenty of fluids. Referrals: Alfredo Conrad MD [Primary Care Provider] - - Critical Care Critical Care Time: No Attestation: On , the high probability of a clinically significant, sudden or life threatening deterioration of the following system(s) required my full and direct attention, intervention and personal management. The time I documented below is in addition to time spent performing reported procedures but includes the following listed in this critical care notation. Medical Decision Making - Naman Inquiry Pt receiving controlled substance: No Vital Signs: 10/20/21 09:39 10/20/21 09:58 Temperature 98.1 F Temperature Source Oral Pulse Rate [Brachial] 109 H Pulse Rate [Orthostatic Lying] 111 H Pulse Rate [Orthostatic Standing] 125 H Respiratory Rate 20 Blood Pressure [Orthostatic Lying] 174/108 H Blood Pressure [Orthostatic Standing] 144/89 H Blood Pressure [Right Arm] 162/104 H Blood Pressure Mean [Right Arm] 123 Blood Pressure Source [Right Arm] Automatic Cuff Blood Pressure Position [Right Arm] Sitting 02 Sat by Pulse Oximetry 98 - Lab Data Lab results reviewed: Yes: I reviewed the patient's lab results. Lab Results 10/20/21 09:55: WBC 10.7, RBC 3.83 L, Hgb 12.9 L, Hct 36.0 L, MCV 93.9, MCH 33.7 H, MCHC 35.9 H, RDW 17.8 H, Plt Count 183, MPV 7.7, Neut % (Auto) 79.1, Lymph % (Auto) 13.3, [place] % (Auto) 4.3, Eos % (Auto) 2.5, Baso % (Auto) 0.7, Neut # (Auto) 8.5 H, Lymph # (Auto) 1.4, [place] # (Auto) 0.5, Eos # (Auto) 0.3, Baso # (Auto) 0.1 10/20/21 09:55: Sodium 134 L, Potassium 2.5 L*, Chloride 96 L, Carbon Dioxide 25, Anion Gap 15.5 H, BUN 15, Creatinine 1.20, Estimated Creat Clear 128, Estimated GFR 69, Est GFR ( Amer) 84, Glucose 112 H, Calcium 6.7 L, Total Bilirubin 0.5, AST 123 H, ALT 69, Alkaline Phosphatase 64, Total Protein 7.4, Albumin 4.3, Globulin 3.1, Albumin/Globulin Ratio 1.4 Result diagrams: 10/20/21 09:55 10/20/21 09:55 Orders (Tests/Meds): ED MEDICATIONS Generic Name Dose Route Start Last Admin Trade Name Freq PRN Reason Stop Dose Admin Sodium Chloride 1,000 mls @ 999 mls/hr 10/20/21 10:00 10/20/21 10:04 Sod Chlor 0.9% 1000ml Bag IV 10/20/21 11:00 999 mls/hr .Q1H1M OLIVIA Administration Discontinued Medications Generic Name Dose Route Start Last Admin Trade Name Freq PRN Reason Stop Dose Admin Potassium Chloride 60 meq 10/20/21 10:21 10/20/21 10:31 Potassium Chloride 20meq Tab PO 10/20/21 10:22 60 meq ONCE ONE Administration ORDERS Category Date Time Status ECG Request by /Jered Stat Y 10/20/21 09:47 Ordered - Radiology Data #1 Image(s): Chest Image Reviewed: Yes I reviewed the patient's radiology image, Yes I have reviewed radiologist's interpretation Preliminary Findings: Normal/NAD - ECG Data Tracing #1 I reviewed this ECG and interpreted as documented below: The patient is ECG was done at 9:49 AM. It shows a sinus tachycardia with a ventricular rate of 105 bpm. OK interval is somewhat shortened without any evidence of WPW/preexcitation. There is no evidence of ischemia. The intervals are otherwise normal. The axes are also normal. Normal Sinus Rhythm: Yes Arrhythmias present: sinus tach Medical Decision Narrative:
--- NOTE | 2021-10-20 09:47 | XR_ITS ---
FINAL REPORT CLINICAL HISTORY: near syncope, pt states that he got very light headed at work today and started to pass out, smoker COMPARISON: 06/11/2020 FINDINGS: The heart size is normal. The mediastinum is normal. There is no focal infiltrate or edema. There are no pleural effusions. There is no pneumothorax. There is no osseous abnormality. IMPRESSION: No acute cardiopulmonary process Reviewed, Interpreted and Dictated by Norm Cash III, MD Transcribed by Alexis Wolff Authenticated and [facility]
--- NOTE | 2021-10-20 09:49 | ECG_ITS ---
APPROVED REPORT Exam: Resting ECG HR:105 bpm ECG Measurements Heart Rate 105 AXES NM 104 P 60 QRSd 105 QRS 55 QT 364 T 51 QTc 425 Conclusion SINUS TACHYCARDIA WITH SHORT NM INTERVAL Incompete RBBB ABNORMAL ECG UNCONFIRMED REPORT Electronically signed by : Alfredo Conrad MD 10/22/2021 17:48:53
[2021-10-20 09:58] VITALS: BP 144/89; BP 174/108; PULSE 111; PULSE 125
[2021-10-20 10:05] LABS: Basophils # 0.1 K/mm3 (0-0.2); Basophils % 0.7 % (0.1-2.0); Eosinophils # 0.3 K/mm3 (0.0-0.4); Eosinophils % 2.5 % (0.1-12.0); Hemoglobin 12.9 g/dL (14.1-18.0); Lymphocytes # 1.4 K/mm3 (0.7-4.5); Lymphocytes % 13.3 % (10-50); Mean Corpuscular HGB Conc 35.9 g/dL (31.8-35.4); Mean Corpuscular Hemoglobin 33.7 pg (27.0-31.2); Mean Corpuscular Volume 93.9 fl (80-94); Mean Platelet Volume 7.7 fl (7.4-10.4); Monocytes # 0.5 K/mm3 (0.1-1.0); Monocytes % 4.3 % (1.7-9.3); Neutrophils # 8.5 K/mm3 (1.8-7.8); Neutrophils % 79.1 % (37.0-80.0); Platelet Count 183 K/mm3 (142-424); Red Blood Count 3.83 M/mm3 (4.60-6.20); Red Cell Distribution Width 17.8 % (11.5-17.5); White Blood Count 10.7 K/mm3 (4.8-10.8)
[2021-10-20 10:11] LABS: Chloride 96 mmol/L (98-107); Sodium 134 mmol/L (136-145)
[2021-10-20 10:14] LABS: Alanine Aminotransferase 69 U/L (12-78); Albumin Level 4.3 g/dl (3.5-5.0); Albumin/Globulin Ratio 1.4 (1.1-1.8); Alkaline Phosphatase 64 U/L (38-126); Anion Gap 15.5 mEq/L (5-15); Aspartate Amino Transferase 123 U/L (17-59); Bilirubin,Total 0.5 mg/dl (0.2-1.3); Blood Urea Nitrogen 15 mg/dl (9-20); Carbon Dioxide 25 mmol/L (22.0-30.0); Creatinine Clearance Estimated 128 mL/min (50-200); Estimated Glomerular Filt Rate 69 ml/min (>60); GFR (African American) 84 ML/MIN (>60); Globulin 3.1 g/dL (1.3-3.2); Total Protein,Serum 7.4 g/dl (6.3-8.2)
[2021-10-20 10:15] LABS: Calcium 6.7 mg/dl (8.4-10.2); Glucose 112 mg/dl (74-100)
--- NOTE | 2021-10-20 10:20 | PC.NURSE ---
CRITICAL K+ 2.5, NAME AND R/V WITH JADON IN LAB, ED NOTIFIED. ORDERS PLACED PER
[2021-10-20 10:21] LABS: Potassium 2.5 mmoL/L (3.5-5.1)
--- NOTE | 2021-10-20 10:30 | PC.NURSE ---
1030 MADE AWARE OF PTS ELEVATED B/P. NO NEW ORDERS
[2021-10-20 11:10] VITALS: BP 122/76; PULSE 98; RESP 20; TEMP 36.7
== END 2021-10-20 11:10 | disposition home or self-care (01) ==
PROVIDERS: Emergency Provider Emergency Medicine; PCP Internal Medicine Adolescent Medicine
DX: I95.1 Orthostatic hypotension (principal); E87.6 Hypokalemia; Z72.0 Tobacco use; F41.9 Anxiety disorder, unspecified; F32.A Depression, unspecified; I10 Essential (primary) hypertension
CPT/HCPCS: 71045; 80053; 85025; 93005; 96365; 99284

== ENCOUNTER → 2022-04-01 16:56 | Outpatient (CLI) | payer BC, SELFPAY ==
[2022-04-01 17:26] LABS: Basophils % 0.4 % (0.1-2.0); Eosinophils # 0.1 K/mm3 (0.0-0.4); Eosinophils % 1.1 % (0.1-12.0); Hematocrit 43.7 % (42.0-52.0); Hemoglobin 15.1 g/dL (14.1-18.0); Lymphocytes # 1.4 K/mm3 (0.7-4.5); Lymphocytes % 15.8 % (10-50); Mean Corpuscular HGB Conc 34.6 g/dL (31.8-35.4); Mean Corpuscular Hemoglobin 29.5 pg (27.0-31.2); Mean Corpuscular Volume 85.1 fl (80-94); Mean Platelet Volume 8.6 fl (7.4-10.4); Monocytes # 0.4 K/mm3 (0.1-1.0); Monocytes % 4.9 % (1.7-9.3); Neutrophils # 6.8 K/mm3 (1.8-7.8); Neutrophils % 77.7 % (37.0-80.0); Platelet Count 257 K/mm3 (142-424); Red Blood Count 5.14 M/mm3 (4.60-6.20); Red Cell Distribution Width 18.6 % (11.5-17.5); White Blood Count 8.7 K/mm3 (4.8-10.8)
[2022-04-01 19:17] LABS: Alanine Aminotransferase 116 U/L (12-78); Albumin Level 4.6 g/dl (3.5-5.0); Albumin/Globulin Ratio 1.4 (1.1-1.8); Alkaline Phosphatase 88 U/L (38-126); Amylase 216 U/L (30-110); Aspartate Amino Transferase 129 U/L (17-59); Bilirubin,Total 0.6 mg/dl (0.2-1.3); Blood Urea Nitrogen 58 mg/dl (9-20); Calcium 8.2 mg/dl (8.4-10.2); Carbon Dioxide 17 mmol/L (22.0-30.0); Chloride 90 mmol/L (98-107); Estimated Glomerular Filt Rate 10 ml/min (>60); GFR (African American) 13 ML/MIN (>60); Globulin 3.4 g/dL (1.3-3.2); Glucose 127 mg/dl (74-100); Sodium 131 mmol/L (136-145)
[2022-04-01 20:13] LABS: Anion Gap 26.3 mEq/L (5-15); Lipase 3118 U/L (23-300); Uric Acid 22.6 mg/dl (3.5-8.5)
[2022-04-01 20:14] LABS: Potassium 2.3 mmoL/L (3.5-5.1)
--- NOTE | 2022-04-01 20:22 | PC.NURSE ---
Dr. Conrad called, requested patient be notified and instructed to come to ER to be evaluated related to abnormal labs.
--- NOTE | 2022-04-01 20:24 | PC.NURSE ---
Called [phone], no answer, voice mail not set up. Will return call
--- NOTE | 2022-04-01 20:30 | PC.NURSE ---
Spoke with Dinesh Leal [phone]. Instructed patient on abnormal labs, stated he was unable to come tonight. Encouraged patient to come in.
== END ==
PROVIDERS: PCP Nurse Practitioner Family; Visit Provider Nurse Practitioner Family
DX: K52.9 Noninfective gastroenteritis and colitis, unspecified (principal); Z87.39 Personal history of other diseases of the musculoskeletal system and connective tissue
CPT/HCPCS: 36415; 80053; 82150; 83690; 84550; 85025

== ENCOUNTER 2022-04-02 11:14 | Inpatient (IN) | payer BC, SELFPAY ==
[2022-04-02] VITALS (14 sets, daily range): BP systolic 108–149; BP diastolic 62–102; PULSE 89–109; RESP 16–20; TEMP 36.4–36.6; O2SAT 96–100; BMI 36.8
--- NOTE | 2022-04-02 11:36 | HMH.EDGENADL ---
Discharge Plan Disposition Patient Disposition: Admitted As Inpatient Chief Complaint: Nausea/Vomiting/Diarrhea Clinical Impressions Clinical Impression: Diarrhea, MATHEW (acute kidney injury), Alcohol abuse, Elevated lipase, Acute hypokalemia Discharge ED Provider: Familia Prince [facility] General Chief complaint: Nausea/Vomiting/Diarrhea Stated complaint: Physician referral, Sent for fluids Time Seen by Provider: 04/02/22 11:36 History of Present Illness HPI narrative: Does admit Patient is a 37-year-old male with past medical history of hypertension, chronic alcoholism who presents emergency department for evaluation of lab abnormalities from his PCP. Patient states that he has had a stomach bug for the last few days with vomiting and diarrhea nonbloody multiple episodes per day. Patient has previously drank 1 pint for over a decade, continues to drink more than 3 shots of hard liquor a day. He denies abdominal pain, chest pain. Patient states he is still making urine, denies dysuria. No other acute complaints at this time. Per chart review patient has estimated GFR of 10, creatinine of 6.2, hypokalemia of 2.3, mild transaminitis, lipase of 3000. Differential diagnosis includes gallstone pancreatitis, hepatorenal syndrome, hypovolemic MATHEW, among others. Hematologic labs will be repeated, given that patient does not have a leukocytosis and is afebrile empiric antibiotics will be deferred. 60 mEq of IV potassium will be initiated for critical hypokalemia. Additional work-up will be conducted with CT the abdomen pelvis without IV contrast, urinalysis, viral swab, GI PCR panel crystalloid bolus will be given given that patient is not anuric for volume resuscitation. Interval update: Son states that patient has had vomiting and diarrhea for 2 weeks with interval resolution of 24 hours followed by current presentation provided in HPI. Related Data Home Medications Medication Instructions Recorded Confirmed colchicine 0.6 mg tablet 0.6 mg PO DAILY GOUT 04/02/22 04/02/22 fluoxetine 20 mg capsule 20 mg PO DAILY MOOD 04/02/22 04/02/22 losartan 50 mg tablet 50 mg PO DAILY Hypertension 04/02/22 04/02/22 omeprazole 40 mg capsule,delayed 40 mg PO DAILY GERD 04/02/22 04/02/22 release ondansetron HCl 4 mg tablet 4 mg PO TIDP PRN Nausea And 04/02/22 04/02/22 Vomiting Allergies Allergy/AdvReac Type Severity Reaction Status Date / Time No Known Drug Allergies Allergy Unknown Verified 06/11/20 13:49 allergy reaction [facility] Disclaimer: The information contained in this section may have been updated after the patient was seen, as this information can be updated by other users. Social History Smoking Status: Current every day smoker tobacco type: cigarettes packs per day: 1 second hand exposure: Yes alcohol intake: never substance use type: denies use current occupational status: employed Travel in the last 8 weeks: None household members: spouse and children housing: house ROS Obtained: Yes Systems reviewed as appropriate & no additional complaints except as documented Physical Exam General General appearance: alert and in no apparent distress Head Head exam: atraumatic and normocephalic Eye Eye exam: Present PERRL and EOMI ENT ENT exam: Present mucous membranes moist Neck Neck exam: Present normal inspection Chest Chest inspection: Present normal inspection and symmetric chest wall rise Respiratory Respiratory exam: Present normal lung sounds bilaterally; Absent respiratory distress Cardiovascular Cardiovascular exam: Present regular rate and normal rhythm Abdominal Exam Abdominal exam: Present soft; Absent tenderness Extremities Exam Extremities exam: Present normal inspection Neurological Exam Neurological exam: Present alert and oriented X3 Psychiatric Psychiatric exam: Present normal affect Skin Skin exam: Present warm and dry Medical Decision Making Naman
--- NOTE | 2022-04-02 11:41 | CT_ITS ---
FINAL REPORT TECHNIQUE: Axial images through the abdomen and pelvis were performed without contrast.This study was performed with techniques to keep radiation doses as low as reasonably achievable, (ALARA). Individualized dose reduction techniques using automated exposure control or adjustment of mA and/or kV according to the patient's size were employed. CLINICAL HISTORY: Pancreatitis, severe MATHEW, alcoholism FINDINGS: ABDOMEN: The lung bases are clear. The heart size is normal. There is fatty infiltration of the liver. The spleen and pancreas are normal. No adrenal mass is identified. The aorta is normal in caliber. There is no significant free fluid or adenopathy. There is no nephrolithiasis. There is no hydronephrosis. PELVIS: The appendix is normal. The urinary bladder is unremarkable. There is no significant free fluid or adenopathy. IMPRESSION: Fatty infiltration of the liver, otherwise unremarkable exam. No evidence of pancreatitis. Reviewed, Interpreted and Dictated by Norm Cash III, MD Transcribed by Adry Hunter Authenticated and [facility]
--- NOTE | 2022-04-02 11:51 | ECG_ITS ---
APPROVED REPORT Exam: Resting ECG HR:89 bpm ECG Measurements Heart Rate 89 AXES [place] 163 P 62 QRSd 109 QRS 56 QT 394 T 68 QTc 441 Conclusion SINUS RHYTHM with delta waves noted Biatrial abnormality NSSTW changes UNCONFIRMED REPORT Electronically signed by : Alfredo Conrad MD 04/02/2022 16:42:07
--- NOTE | 2022-04-02 11:56 | PC.NURSE ---
pt to CT at this time
[2022-04-02 11:58] LABS: Basophils # 0.1 K/mm3 (0-0.2); Basophils % 0.8 % (0.1-2.0); Eosinophils # 0.1 K/mm3 (0.0-0.4); Eosinophils % 1.1 % (0.1-12.0); Hematocrit 46.3 % (42.0-52.0); Hemoglobin 15.9 g/dL (14.1-18.0); Lymphocytes # 1.7 K/mm3 (0.7-4.5); Lymphocytes % 19.9 % (10-50); Mean Corpuscular HGB Conc 34.4 g/dL (31.8-35.4); Mean Corpuscular Hemoglobin 29.4 pg (27.0-31.2); Mean Corpuscular Volume 85.3 fl (80-94); Mean Platelet Volume 8.4 fl (7.4-10.4); Monocytes # 0.5 K/mm3 (0.1-1.0); Monocytes % 5.7 % (1.7-9.3); Neutrophils # 6.3 K/mm3 (1.8-7.8); Neutrophils % 72.5 % (37.0-80.0); Platelet Count 276 K/mm3 (142-424); Red Blood Count 5.43 M/mm3 (4.60-6.20); Red Cell Distribution Width 18.5 % (11.5-17.5); White Blood Count 8.7 K/mm3 (4.8-10.8)
[2022-04-02 12:00] LABS: Chloride 88 mmol/L (98-107); Sodium 131 mmol/L (136-145)
[2022-04-02 12:03] LABS: Alanine Aminotransferase 120 U/L (12-78); Anion Gap 26.9 mEq/L (5-15); Aspartate Amino Transferase 141 U/L (17-59); Blood Urea Nitrogen 51 mg/dl (9-20); Carbon Dioxide 18 mmol/L (22.0-30.0); Creatinine Clearance Estimated 22 mL/min (50-200); Estimated Glomerular Filt Rate 10 ml/min (>60); GFR (African American) 12 ML/MIN (>60)
[2022-04-02 12:04] LABS: Albumin/Globulin Ratio 1.4 (1.1-1.8); Alkaline Phosphatase 70 U/L (38-126); Bilirubin,Direct 0.5 mg/dl (0.0-0.4); Bilirubin,Total 0.6 mg/dl (0.2-1.3); Calcium 8.3 mg/dl (8.4-10.2); Globulin 3.6 g/dL (1.3-3.2); Glucose 88 mg/dl (74-100); Total Protein,Serum 8.6 g/dl (6.3-8.2)
[2022-04-02 12:18] LABS: Lipase 3978 U/L (23-300)
[2022-04-02 12:19] LABS: Potassium 1.9 mmoL/L (3.5-5.1)
--- NOTE | 2022-04-02 12:20 | PC.NURSE ---
Lab called and report critical potassium of 1.9 and creat of 6.6 repeated and verified with lab and MD notified at this time
[2022-04-02 12:35] LABS: Lactic Acid 2.6 mmol/L (0.7-2.1)
[2022-04-02 13:48] LABS: Adenovirus F 40/41, stool Not Detected (NotDetected); Astrovirus Not Detected (NotDetected); Campylobacter Not Detected (NotDetected); Cryptosporidium Not Detected (NotDetected); Cyclospora Cayetanesis Not Detected (NotDetected); Entamoeba histolytica Not Detected (NotDetected); Enteroaggregative E coli Not Detected (NotDetected); Enteropathogenic E coli Not Detected (NotDetected); Enterotoxigenic E coli Not Detected (NotDetected); Giardia lamblia Not Detected (NotDetected); Norovirus Not Detected (NotDetected); Plesimonas Shigalloides, PCR Not Detected (NotDetected); Rotavirus A Not Detected (NotDetected); Salmonella, PCR Not Detected (NotDetected); Sapovirus Not Detected (NotDetected); Shiga-like toxin E coli Not Detected (NotDetected); Shigella Enterovasive E coli Not Detected (NotDetected); Vibrio Cholerae Not Detected (NotDetected); Vibrio, PCR Not Detected (NotDetected); Yersinia Entercolitica, PCR Not Detected (NotDetected)
--- NOTE | 2022-04-02 14:12 | PC.NURSE ---
placed call to [facility] for icu bed transfer
--- NOTE | 2022-04-02 14:35 | PC.NURSE ---
Dr erazo speaking with [facility]
--- NOTE | 2022-04-02 14:49 | PC.NURSE ---
placed call to [facility] for transfer
--- NOTE | 2022-04-02 14:53 | PC.NURSE ---
speaking with hospitalist at [facility]
--- NOTE | 2022-04-02 15:09 | US_ITS ---
PROCEDURE INFORMATION: Exam: US Abdomen, Limited; Right Upper Quadrant Exam date and time: 04/02/2022 3:49 PM Age: 37 years old Clinical indication: Abnormal findings; Abnormal lab test; Elevated liver enzymes; Additional info: Pancreatitis, eval liver, cbd, gall bladder TECHNIQUE: Imaging protocol: Real time ultrasound of the abdomen with image documentation. Limited exam focused on the right upper quadrant. COMPARISON: CT ABDOMEN PELVIS WO CON 04/02/2022 11:59 AM FINDINGS: Liver: Liver is diffusely echogenic in texture consistent with fatty infiltration. There are no masses detected. Gallbladder: Normal. No gallstones. There is no gallbladder wall thickening. Biliary ducts: Common bile duct is upper limits of normal measuring 6 mm in maximum diameter. Pancreas: Pancreas is poorly visualized due to obscuring bowel gas limiting assessment. Right kidney: Normal. No mass. No hydronephrosis. IMPRESSION: 1. Diffuse fatty infiltration of the liver. 2. Limited assessment of the pancreas. 3. Common bile duct is within upper limits of normal in size measuring 6 mm in diameter.
--- NOTE | 2022-04-02 15:11 | PC.NURSE ---
[facility] called for transfer pt placed on pending list
--- NOTE | 2022-04-02 15:13 | PC.NURSE ---
Dr Paty tenorio for Dr Conrad pt
[2022-04-02 15:18] LABS: Microscopic, Urine URINE MICROSCOPIC (MICROSCOPIC)
[2022-04-02 15:25] LABS: Appearance,Urine CLEAR (Clear); Blood, Urine 3+ (Negative); Color,Urine YELLOW (Yellow); Glucose,Urine (UA) Negative (Negative); Ketones,Urine Negative (Negative); Leukocyte Esterase,Urine Negative (Negative); Nitrate,Urine Negative (Negative); Protein,Urine 2+ (Negative); Urobilinogen,Urine 0.2 EU/dl (0.2)
--- NOTE | 2022-04-02 15:27 | PC.NURSE ---
Dr Newman returned call, pt to be admitted, joss house keeper called for admission
--- NOTE | 2022-04-02 15:29 | PC.NURSE ---
Spoke with registration and placed patient in a bed assignment.
[2022-04-02 15:38] LABS: Coronavirus 19, PCR Not Detected (NotDetected); Influenza A, PCR Not Detected (NotDetected); Influenza B, PCR Not Detected (NotDetected)
--- NOTE | 2022-04-02 15:44 | HMH.PHAINT1 ---
Pharmacy Intervention Comments: MEDICATION RECONCILIATION COMPLETED ON PATIENT USING EXTERNAL FILL HISTORY FROM PHARMACY. -JORGE LUIS SHARMA, YOLANDAD
[2022-04-02 15:54] LABS: Reflex Lactic Add Lactic Reflex
[2022-04-02 15:54] LABS: Bilirubin,Urine Negative (Negative)
--- NOTE | 2022-04-02 16:00 | PC.NURSE ---
report called to cayetano mathew on second floor
[2022-04-02 16:01] LABS: WBC,Urine Occasional #/hpf (0-3)
[2022-04-02 16:03] LABS: Bacteria,Urine 1+ /lpf
--- NOTE | 2022-04-02 16:36 | PC.NURSE ---
[facility] orders cancelled on transfer, Klever in pharmacy notified.
--- NOTE | 2022-04-02 16:41 | PC.NURSE ---
ER spoke with ultrasound staff r/t verbal report on pt ultrasound
--- NOTE | 2022-04-02 17:00 | PC.NURSE ---
pt transported to second floor via wheelchair per cayetano mathew
[2022-04-02 17:45] LABS: Clostridium Difficile A/B, PCR Detected (NotDetected)
--- NOTE | 2022-04-02 17:48 | PC.NURSE ---
patient arrived to floor at 17:07 by wheelchair from ED
--- NOTE | 2022-04-02 17:54 | PC.NURSE ---
Notified Dr Newman that patients diarrhea panel came back positive for cdiff. New order of 500mg metronidazole IV q8hrs received.
[2022-04-02 21:45] LABS: POC Glucose,Bedside 90 (70-110)
[2022-04-02 21:52] LABS: Potassium 2.5 mmoL/L (3.5-5.1)
[2022-04-03] VITALS (11 sets, daily range): BP systolic 119–152; BP diastolic 65–95; PULSE 70–110; RESP 17–20; TEMP 36.4–36.6; O2SAT 96–100; BMI 36.4
--- NOTE | 2022-04-03 03:23 | PC.NURSE ---
AT 2205 LAB REPORTS POTASSIUM LEVEL 2.5. DR SANDS NOTIFIED AND ORDERS RECEIVED FOR 2 RUNS OF KCL 20 MEW/100 NS IV.
[2022-04-03 05:50] LABS: POC Glucose,Bedside 101 (70-110)
[2022-04-03 08:22] LABS: Chloride 101 mmol/L (98-107); Sodium 130 mmol/L (136-145)
[2022-04-03 08:24] LABS: Alanine Aminotransferase 88 U/L (12-78); Alkaline Phosphatase 47 U/L (38-126); Anion Gap 14.6 mEq/L (5-15); Aspartate Amino Transferase 110 U/L (17-59); Bilirubin,Total 0.5 mg/dl (0.2-1.3); Blood Urea Nitrogen 46 mg/dl (9-20); Carbon Dioxide 17 mmol/L (22.0-30.0); Creatinine Clearance Estimated 44 mL/min (50-200); Estimated Glomerular Filt Rate 22 ml/min (>60); GFR (African American) 27 ML/MIN (>60); Glucose 88 mg/dl (74-100)
[2022-04-03 08:25] LABS: Albumin Level 3.4 g/dl (3.5-5.0); Albumin/Globulin Ratio 1.3 (1.1-1.8); Globulin 2.6 g/dL (1.3-3.2); Lactic Acid 0.8 mmol/L (0.7-2.1)
[2022-04-03 08:45] LABS: Basophils % 0.7 % (0.1-2.0); Eosinophils # 0.2 K/mm3 (0.0-0.4); Eosinophils % 2.9 % (0.1-12.0); Hematocrit 34.2 % (42.0-52.0); Lymphocytes # 1.3 K/mm3 (0.7-4.5); Lymphocytes % 20.2 % (10-50); Mean Corpuscular HGB Conc 34.8 g/dL (31.8-35.4); Mean Corpuscular Hemoglobin 29.5 pg (27.0-31.2); Mean Corpuscular Volume 84.9 fl (80-94); Mean Platelet Volume 8.6 fl (7.4-10.4); Monocytes # 0.3 K/mm3 (0.1-1.0); Monocytes % 4.7 % (1.7-9.3); Neutrophils # 4.4 K/mm3 (1.8-7.8); Neutrophils % 71.5 % (37.0-80.0); Platelet Count 171 K/mm3 (142-424); Red Blood Count 4.03 M/mm3 (4.60-6.20); Red Cell Distribution Width 18.7 % (11.5-17.5); White Blood Count 6.2 K/mm3 (4.8-10.8)
--- NOTE | 2022-04-03 08:47 | EXP.HP ---
History of Present Illness *Admission Date: 04/02/22 *Reason for visit:: Stomach pain/abnormal labs *History of present illness: Patient is a 37-year-old male with past medical history of hypertension, chronic alcoholism who presents emergency department for evaluation of lab abnormalities from his PCP.? Patient states that he has had a stomach bug for the last few days with vomiting and diarrhea nonbloody multiple episodes per day.? Patient has previously drank 1 pint for over a decade, continues to drink more than 3 shots of hard liquor a day.? He denies abdominal pain, chest pain.? Patient states he is still making urine, denies dysuria.? No other acute complaints at this time.? Per chart review patient has estimated GFR of 10, creatinine of 6.2, hypokalemia of 2.3, mild transaminitis, lipase of 3000.? Differential diagnosis includes gallstone pancreatitis, hepatorenal syndrome, hypovolemic MATHEW, among others.? Hematologic labs will be repeated, given that patient does not have a leukocytosis and is afebrile empiric antibiotics will be deferred.? 60 mEq of IV potassium will be initiated for critical hypokalemia.? Additional work-up will be conducted with CT the abdomen pelvis without IV contrast, urinalysis, viral swab, GI PCR panel crystalloid bolus will be given given that patient is not anuric for volume resuscitation. Medical Decision Narrative: In summary patient is a 37-year-old male with past medical history of gout, hypertension who presents to the emergency department for evaluation of lab abnormalities.? Patient is hemodynamically stable and nontoxic-appearing upon arrival, afebrile.? Review of previous work-up shows significant MATHEW, significant hypokalemia.? Labs will be repeated.? Additional work-up will be conducted with CT the abdomen pelvis without IV contrast, urinalysis, stool study.? Initial interventions include potassium replacement and 1 L of crystalloid resuscitation.? Initial work-up reviewed by me, potassium is 1.9, multiple other electrolyte abnormalities, creatinine 6.6, lactate 2.6.? Patient has no leukocytosis, no initial tachycardia and a nontender abdominal exam so empiric antibiotics will be deferred in an effort to preserve remaining renal function.? Mild transaminitis, significantly elevated lipase of 3978.? CT of the abdomen pelvis without contrast shows no acute abnormalities, no stranding around the pancreas, normal appendix, fatty infiltration of the liver.? Patient was given an additional liter of crystalloid resuscitation.? In total patient was given 2 L crystalloid, 60 mill equivalents of potassium IV was ordered and running through peripheral IV, 40 mEq of p.o. potassium.? Patient's blood pressure remained normal.? Differential includes alcoholic pancreatitis with MATHEW, hypovolemic injury, among others.? Maintenance fluids were ordered and the case was discussed with internal medicine and they will admit the patient to their service for continued evaluation at this time.? Right upper quadrant ultrasound was ordered and pending at time of admission. Patient was placed on alcohol withdrawal protocol prior to admission. Above 2 paragraphs per ER physician: Patient had been seen in our offices 2 days before admission, had had abdominal pain and lots of diarrhea and labs were done which revealed extremely low potassium and high creatinine. Patient was contacted by me personally and recommended to come to the ER on the evening of 04/01/2022-but patient declined because of childcare and job responsibilities. I discussed with him the seriousness of his condition. He acknowledged this and was able to come to the ER the next day and work-up was initiated as noted above. He feels much better on rounds today after having IV fluids and less diarrhea. Unfortunately, he continues to drink heavily, about 1/2 pint of whiskey daily. He has tried to quit in the past, rehab has been not as successful as hoped, he has done well in the past on diazepam
[2022-04-03 09:00] LABS: Magnesium 0.3 mg/dl (1.6-2.3); Potassium 2.6 mmoL/L (3.5-5.1)
--- NOTE | 2022-04-03 09:12 | PC.NURSE ---
CRITICAL LAB REPORTED FROM LAB NAME AND VERIFIED. RESULTS REPORTED TO DR LARSON K 2.[address] LARSON TO PUT IN ORDERS.
[2022-04-03 09:30] LABS: Lipase 4597 U/L (23-300)
[2022-04-03 10:23] LABS: Thyroid Stimulating Hormone 1.19 uIU/mL (0.465-4.68)
--- NOTE | 2022-04-03 14:31 | PC.NURSE ---
PT FAMILY CAME RUNNING OUT INTO THE HALLWAY. THIS RN ENTERED PATIENT ROOM AND OBSERVED PATIENT ACTIVELY SEIZING SITTING UP IN HIS BEDSIDE RECLINER. PT WAS TURNED ON TO LEFT SIDE, 2LNC WAS APPLIED. PT WAS NOT RESPONSIVE. SEIZURE EVENT LASTED APPROX [address] SANDS WAS PAGED BY CASK MAKER AND V/O FOR 10 MG VALIUM WAS OBTAINED AND ADMINISTERED BY Tania VALENTINE VERIFIED BY THIS RN. PT IS CURRENTLY SITTING UP IN CHAIR. HE IS AOX3 (NAME/PLACE/SITUATION). HIS O2 SATURATION IS 99%. PT IS SOMEWHAT LETHARGIC.
--- NOTE | 2022-04-03 14:40 | EXP.EVENT.NO ---
Approximately 14:35 on 04/03/2022 nursing contacted me out of concern the patient was having a seizure. Patient is admitted for electrolyte disturbances, gastroenteritis, with a history of alcohol abuse. By the time I arrived at bedside patient seizing stopped, and he was in a postictal state. Reviewed patient's chart briefly to assess disturbances which showed hyponatremia and severe hypomagnesemia. I requested repeat labs which showed magnesium still at 1.1, give a second dose of magnesium to help correct deficiency. On-call team was contacted for management and benzodiazepines were administered per his [facility] protocol. Patient still confused but able to tell me his name and that he was at the hospital. Noted to have bitten his tongue. Heart regular, lungs clear. No further incidents of seizure through the afternoon/my shift.
[2022-04-03 15:54] LABS: Alanine Aminotransferase 105 U/L (12-78); Albumin Level 3.8 g/dl (3.5-5.0); Albumin/Globulin Ratio 1.4 (1.1-1.8); Alkaline Phosphatase 54 U/L (38-126); Anion Gap 19.3 mEq/L (5-15); Aspartate Amino Transferase 126 U/L (17-59); Bilirubin,Total 0.5 mg/dl (0.2-1.3); Blood Urea Nitrogen 49 mg/dl (9-20); Carbon Dioxide 11 mmol/L (22.0-30.0); Chloride 104 mmol/L (98-107); Creatinine Clearance Estimated 44 mL/min (50-200); Estimated Glomerular Filt Rate 22 ml/min (>60); GFR (African American) 27 ML/MIN (>60); Globulin 2.8 g/dL (1.3-3.2); Glucose 91 mg/dl (74-100); Magnesium 1.1 mg/dl (1.6-2.3); Potassium 3.3 mmoL/L (3.5-5.1); Sodium 131 mmol/L (136-145); Total Protein,Serum 6.6 g/dl (6.3-8.2)
--- NOTE | 2022-04-03 18:10 | PC.NURSE ---
PT IS AOX4, HAS BEEN UP TO CHAIR FOR MOST OF SHIFT. DID SUFFER FROM APPARENT SEIZURE THIS AFTERNOON. CIWA ASSESSED Q2HRS. LAST CHECK CIWA WAS 4. HE HAS TOLERATED CLD WELL. HAS NOT C/O PAIN THIS SHIFT ASIDE FROM A HEAD ACHE FOR WHICH HE RECEIVED 650MG TYLENOL PER MAR WITH GOOD EFFECTIVENESS.
[2022-04-03 18:34] LABS: POC Glucose,Bedside 112 (70-110)
[2022-04-03 18:34] LABS: POC Glucose,Bedside 133 (70-110)
[2022-04-03 20:38] LABS: Chloride 108 mmol/L (98-107); Sodium 135 mmol/L (136-145)
[2022-04-03 20:39] LABS: Potassium 5.1 mmoL/L (3.5-5.1)
[2022-04-03 20:41] LABS: Blood Urea Nitrogen 47 mg/dl (9-20); Creatinine Clearance Estimated 47 mL/min (50-200); Estimated Glomerular Filt Rate 24 ml/min (>60); GFR (African American) 29 ML/MIN (>60)
[2022-04-03 20:42] LABS: Anion Gap 21.1 mEq/L (5-15); Calcium 8.5 mg/dl (8.4-10.2); Carbon Dioxide 11 mmol/L (22.0-30.0); Glucose 89 mg/dl (74-100)
[2022-04-04] VITALS (9 sets, daily range): BP systolic 106–157; BP diastolic 68–95; PULSE 70–96; RESP 16–18; TEMP 36.4–36.7; O2SAT 100; BMI 36.3
[2022-04-04 00:06] LABS: Potassium 2.3 mmoL/L (3.5-5.1)
--- NOTE | 2022-04-04 00:18 | PC.NURSE ---
comfort from lab reported critical potassium level of 2.3, verified name and . notified MD rosario, transition mgr rn for [facility], ordered to give 2 runs of potassium 20.
[2022-04-04 06:43] LABS: POC Glucose,Bedside 95 (70-110)
[2022-04-04 06:51] LABS: Basophils # 0.1 K/mm3 (0-0.2); Basophils % 1.1 % (0.1-2.0); Eosinophils # 0.2 K/mm3 (0.0-0.4); Eosinophils % 4.1 % (0.1-12.0); Hematocrit 35.7 % (42.0-52.0); Hemoglobin 12.6 g/dL (14.1-18.0); Lymphocytes # 1.3 K/mm3 (0.7-4.5); Lymphocytes % 25.2 % (10-50); Mean Corpuscular HGB Conc 35.2 g/dL (31.8-35.4); Mean Corpuscular Hemoglobin 29.4 pg (27.0-31.2); Mean Corpuscular Volume 83.6 fl (80-94); Mean Platelet Volume 8.5 fl (7.4-10.4); Monocytes # 0.2 K/mm3 (0.1-1.0); Monocytes % 4.4 % (1.7-9.3); Neutrophils # 3.4 K/mm3 (1.8-7.8); Platelet Count 148 K/mm3 (142-424); Red Blood Count 4.27 M/mm3 (4.60-6.20); Red Cell Distribution Width 18.6 % (11.5-17.5); White Blood Count 5.3 K/mm3 (4.8-10.8)
[2022-04-04 06:59] LABS: POC Glucose,Bedside 74 (70-110)
[2022-04-04 07:00] LABS: Chloride 104 mmol/L (98-107); Sodium 131 mmol/L (136-145)
[2022-04-04 07:03] LABS: Alanine Aminotransferase 94 U/L (12-78); Albumin Level 3.6 g/dl (3.5-5.0); Albumin/Globulin Ratio 1.4 (1.1-1.8); Alkaline Phosphatase 62 U/L (38-126); Anion Gap 14.8 mEq/L (5-15); Aspartate Amino Transferase 118 U/L (17-59); Bilirubin,Total 0.4 mg/dl (0.2-1.3); Blood Urea Nitrogen 37 mg/dl (9-20); Carbon Dioxide 15 mmol/L (22.0-30.0); Creatinine Clearance Estimated 64 mL/min (50-200); Estimated Glomerular Filt Rate 34 ml/min (>60); GFR (African American) 41 ML/MIN (>60); Globulin 2.6 g/dL (1.3-3.2); Total Protein,Serum 6.2 g/dl (6.3-8.2)
[2022-04-04 07:04] LABS: Calcium 7.8 mg/dl (8.4-10.2); Glucose 73 mg/dl (74-100)
[2022-04-04 07:07] LABS: Potassium 2.8 mmoL/L (3.5-5.1)
--- NOTE | 2022-04-04 07:29 | PC.NURSE ---
lab reported a critical potassium of 2.8, name and verified. passed on to JAY moyer in report. notified MD Conrad, orders to give 2g magnesium iv and 60 mEq potassium po.
--- NOTE | 2022-04-04 08:42 | EXP.ACUTE.PN ---
Subjective *Date: 04/04/22 *Time: 08:42 Interval history: Yesterday afternoon patient had a grand mall seizure, with no deoxygenation or vomiting or postictal confusion after his 3 to 4-minute seizure. He was given 10 mg of Valium which seemed to abort the seizure. He quickly recovered his baseline mental function. He states this morning he feels great, is hungry, and has had no postictal sequela. He states that he had a seizure when he was 16, and may have had a couple in the past couple years when he is been 20 off alcohol. He is never seen neurology and has had no issues with driving, he is also never been on antiepileptic medicine. Medical Exam Vital signs and Labs for Last 24 Hours: Vital Signs Temp Pulse Pulse Resp BP Pulse Ox 04/04/22 07:36 97.7 F 76 17 142/92 H 100 04/04/22 04:00 70 04/04/22 00:00 90 04/03/22 20:00 70 04/04/22 04:00 97.5 F L 82 18 109/68 L 100 04/03/22 23:41 97.7 F 80 18 152/95 H 100 04/03/22 19:56 97.6 F 78 18 137/89 100 04/03/22 16:00 90 04/03/22 12:00 90 04/03/22 15:01 97.5 F L 110 H 17 151/85 H 99 04/03/22 11:20 97.5 F L 72 17 131/81 100 Intake and Output 04/03/22 04/04/22 04/04/22 19:59 03:59 11:59 Intake Total 1200 / 2520 720 / 2520 600 / 2520 Output Total 0 / 0 0 / 0 Balance 1200 / 2520 720 / 2520 600 / 2520 Intake: Intake, Oral Amount 1200 / 2520 720 / 2520 600 / 2520 Output: Output, Urine Amount 0 / 0 0 / 0 Other: Number of Unmeasured Voids 1 3 1 Weight 212 lb 9 oz Patient Weight 04/04/22 11:59 Weight 212 lb 9 oz Laboratory Results - last 24 hr 04/03/22 08:03: WBC 6.2 D, RBC 4.03 L D, Hgb 12.0 L D, Hct 34.2 L, MCV 84.9, MCH 29.5, MCHC 34.8, RDW 18.7 H, Plt Count 171 D, MPV 8.6, Neut % (Auto) 71.5, Lymph % (Auto) 20.2, Donley % (Auto) 4.7, Eos % (Auto) 2.9, Baso % (Auto) 0.7, Neut # (Auto) 4.4, Lymph # (Auto) 1.3, Donley # (Auto) 0.3, Eos # (Auto) 0.2, Baso # (Auto) 0.0 04/03/22 08:03: Sodium 130 L, Potassium 2.6 L*, Chloride 101, Carbon Dioxide 17 L, Anion Gap 14.6, BUN 46 H, Creatinine 3.20 H D, Estimated Creat Clear 44, Estimated GFR 22 L, Est GFR ( Amer) 27 L D, Glucose 88, Calcium 7.0 L, Magnesium 0.3 L, Total Bilirubin 0.5, AST 110 H, ALT 88 H D, Alkaline Phosphatase 47, Total Protein 6.0 L D, Albumin 3.4 L D, Globulin 2.6, Albumin/Globulin Ratio 1.3, Lipase 4597 H 04/03/22 08:03: TSH 1.19 04/03/22 11:57: POC Glucose 112 H 04/03/22 15:15: Sodium 131 L, Potassium 3.3 L D, Chloride 104, Carbon Dioxide 11 L, Anion Gap 19.3 H, BUN 49 H, Creatinine 3.20 H, Estimated Creat Clear 44, Estimated GFR 22 L, Est GFR ( Amer) 27 L, Glucose 91, Calcium 8.0 L, Magnesium 1.1 L D, Total Bilirubin 0.5, AST 126 H, ALT 105 H, Alkaline Phosphatase 54, Total Protein 6.6, Albumin 3.8 D, Globulin 2.8, Albumin/Globulin Ratio 1.4 04/03/22 17:21: POC Glucose 133 H 04/03/22 20:15: Sodium 135 L, Potassium 5.1 D, Chloride 108 H, Carbon Dioxide 11 L, Anion Gap 21.1 H, BUN 47 H, Creatinine 3.00 H, Estimated Creat Clear 47, Estimated GFR 24 L, Est GFR ( Amer) 29 L, Glucose 89, Calcium 8.5 04/03/22 21:31: POC Glucose 95 04/03/22 23:45: Potassium 2.3 L* D 04/04/22 06:30: WBC 5.3, RBC 4.27 L, Hgb 12.6 L, Hct 35.7 L, MCV 83.6, MCH 29.4, MCHC 35.2, RDW 18.6 H, Plt Count 148, MPV 8.5, Neut % (Auto) 65.0, Lymph % (Auto) 25.2, Donley % (Auto) 4.4, Eos % (Auto) 4.1, Baso % (Auto) 1.1, Neut # (Auto) 3.4, Lymph # (Auto) 1.3, Donley # (Auto) 0.2, Eos # (Auto) 0.2, Baso # (Auto) 0.1 04/04/22 06:30: Sodium 131 L, Potassium 2.8 L* D, Chloride 104, Carbon Dioxide 15 L, Anion Gap 14.8, BUN 37 H, Creatinine 2.20 H D, Estimated Creat Clear 64, Estimated GFR 34 L, Est GFR ( Amer) 41 L D, Glucose 73 L, Calcium 7.8 L, Total Bilirubin 0.4, AST 118 H, ALT 94 H, Alkaline Phosphatase 62, Total Protein 6.2 L, Albumin 3.6, Globulin 2.6, Albumin/Globulin Ratio 1.4 04/04/22 06:38: POC Glucose 74 I & O for Labs for Last 24 Hours: In
--- NOTE | 2022-04-04 15:18 | PC.NURSE ---
NO SEIZURE LIKE ACTIVITY THIS SHIFT, PT IS AOX4, HAS SPENT ALL DAY UP TO CHAIR, HAS NOT REQUIRED O2 SUPPORT, WAS NOTED TO BE WALKING AROUND ROOM. CIWA SCORE HAS STAYED CONSISTENTLY 4 WITH MODERATE TREMORS NOTED TO BUE. HE HAS DENIED VISUAL/TACTILE DISTURBANCES AND NO EVIDENCE PERCEIVED BY THIS RN. NO RAYGOZA THIS SHIFT. OLIVIA ATIVAN ORDERED PER MD ALONGSIDE CIWA PROTOCOL WITH GOOD EFFECTIVENESS NOTED. HE TOLERATED REGULAR DIET WELL NO C/O N/V. HAS DENIED ABD PAIN THIS SHIFT. PT REPORTS DIARRHEA STILL PRESENT. HE IS ABLE TO AMBULATE TO BATHROOM WITH STANDBY ASSIST. FAMILY HAS BEEN IN ROOM ALL SHIFT.
[2022-04-04 17:21] LABS: POC Glucose,Bedside 111 (70-110)
[2022-04-04 18:42] LABS: Anion Gap 11.9 mEq/L (5-15); Blood Urea Nitrogen 33 mg/dl (9-20); Calcium 9.3 mg/dl (8.4-10.2); Carbon Dioxide 19 mmol/L (22.0-30.0); Chloride 107 mmol/L (98-107); Creatinine Clearance Estimated 70 mL/min (50-200); Estimated Glomerular Filt Rate 38 ml/min (>60); GFR (African American) 46 ML/MIN (>60); Sodium 135 mmol/L (136-145)
[2022-04-04 18:45] LABS: Potassium 2.9 mmoL/L (3.5-5.1)
[2022-04-04 18:46] LABS: Glucose 98 mg/dl (74-100); Magnesium 1.9 mg/dl (1.6-2.3)
[2022-04-05] VITALS: BP 124/67; PULSE 90; PULSE 98; RESP 16; TEMP 37.1; O2SAT 96
[2022-04-05 04:00] VITALS: BP 120/72; PULSE 77; PULSE 90; RESP 18; TEMP 36.7; O2SAT 100; BMI 36.3
[2022-04-05 05:28] LABS: POC Glucose,Bedside 86 (70-110)
--- NOTE | 2022-04-05 05:47 | PC.NURSE ---
Pt aox4. CIWA 0 t/o shift. Pt c/o back pain 1x, tylenol administered per JUN. Pt has ambulated hallways independently acc. by mother multiple times this shift. Pt has tolerated regular diet well with no c/o indigestion/stomach pain/nausea. Pt slept well t/o night up in chair. Mother in bed. Call light within reach.
[2022-04-05 07:19] LABS: Basophils # 0.1 K/mm3 (0-0.2); Basophils % 0.9 % (0.1-2.0); Eosinophils # 0.2 K/mm3 (0.0-0.4); Eosinophils % 3.3 % (0.1-12.0); Hematocrit 35.7 % (42.0-52.0); Hemoglobin 12.2 g/dL (14.1-18.0); Lymphocytes # 1.4 K/mm3 (0.7-4.5); Lymphocytes % 21.3 % (10-50); Mean Corpuscular HGB Conc 34.1 g/dL (31.8-35.4); Mean Corpuscular Hemoglobin 28.9 pg (27.0-31.2); Mean Corpuscular Volume 84.7 fl (80-94); Mean Platelet Volume 9.1 fl (7.4-10.4); Monocytes # 0.3 K/mm3 (0.1-1.0); Monocytes % 3.8 % (1.7-9.3); Neutrophils # 4.6 K/mm3 (1.8-7.8); Neutrophils % 70.7 % (37.0-80.0); Platelet Count 186 K/mm3 (142-424); Red Blood Count 4.22 M/mm3 (4.60-6.20); Red Cell Distribution Width 18.3 % (11.5-17.5); White Blood Count 6.4 K/mm3 (4.8-10.8)
[2022-04-05 07:22] LABS: Chloride 109 mmol/L (98-107); Sodium 137 mmol/L (136-145)
[2022-04-05 07:24] LABS: Alanine Aminotransferase 102 U/L (12-78); Aspartate Amino Transferase 102 U/L (17-59); Blood Urea Nitrogen 25 mg/dl (9-20); Creatinine Clearance Estimated 78 mL/min (50-200); Estimated Glomerular Filt Rate 43 ml/min (>60); GFR (African American) 52 ML/MIN (>60)
[2022-04-05 07:25] LABS: Albumin Level 3.8 g/dl (3.5-5.0); Albumin/Globulin Ratio 1.4 (1.1-1.8); Alkaline Phosphatase 67 U/L (38-126); Bilirubin,Total 0.4 mg/dl (0.2-1.3); Calcium 9.6 mg/dl (8.4-10.2); Carbon Dioxide 20 mmol/L (22.0-30.0); Globulin 2.7 g/dL (1.3-3.2); Glucose 79 mg/dl (74-100); Magnesium 1.8 mg/dl (1.6-2.3); Total Protein,Serum 6.5 g/dl (6.3-8.2)
--- NOTE | 2022-04-05 07:58 | P.DS_ITS ---
General Admission date:: 04/04/22 Discharge date: 04/05/22 HPI HPI HPI: Patient is a 37-year-old male with past medical history of hypertension, chronic alcoholism who presents emergency department for evaluation of lab abnormalities from his PCP.? Patient states that he has had a stomach bug for the last few days with vomiting and diarrhea nonbloody multiple episodes per day.? Patient has previously drank 1 pint for over a decade, continues to drink more than 3 shots of hard liquor a day.? He denies abdominal pain, chest pain.? Patient states he is still making urine, denies dysuria.? No other acute complaints at this time.? Per chart review patient has estimated GFR of 10, creatinine of 6.2, hypokalemia of 2.3, mild transaminitis, lipase of 3000.? Differential diagnosis includes gallstone pancreatitis, hepatorenal syndrome, hypovolemic MATHEW, among others.? Hematologic labs will be repeated, given that patient does not have a leukocytosis and is afebrile empiric antibiotics will be deferred.? 60 mEq of IV potassium will be initiated for critical hypokalemia.? Additional work-up will be conducted with CT the abdomen pelvis without IV contrast, urinalysis, viral swab, GI PCR panel crystalloid bolus will be given given that patient is not anuric for volume resuscitation. Medical Decision Narrative: In summary patient is a 37-year-old male with past medical history of gout, hypertension who presents to the emergency department for evaluation of lab abnormalities.? Patient is hemodynamically stable and nontoxic-appearing upon arrival, afebrile.? Review of previous work-up shows significant MATHEW, significant hypokalemia.? Labs will be repeated.? Additional work-up will be conducted with CT the abdomen pelvis without IV contrast, urinalysis, stool study.? Initial interventions include potassium replacement and 1 L of crystalloid resuscitation.? Initial work-up reviewed by me, potassium is 1.9, multiple other electrolyte abnormalities, creatinine 6.6, lactate 2.6.? Patient has no leukocytosis, no initial tachycardia and a nontender abdominal exam so empiric antibiotics will be deferred in an effort to preserve remaining renal function.? Mild transaminitis, significantly elevated lipase of 3978.? CT of the abdomen pelvis without contrast shows no acute abnormalities, no stranding around the pancreas, normal appendix, fatty infiltration of the liver.? Patient was given an additional liter of crystalloid resuscitation.? In total patient was given 2 L crystalloid, 60 mill equivalents of potassium IV was ordered and running through peripheral IV, 40 mEq of p.o. potassium.? Patient's blood pressure remained normal.? Differential includes alcoholic pancreatitis with MATHEW, hypovolemic injury, among others.? Maintenance fluids were ordered and the case was discussed with internal medicine and they will admit the patient to their service for continued evaluation at this time.? Right upper quadrant ultrasound was ordered and pending at time of admission. Patient was placed on alcohol withdrawal protocol prior to admission. Above 2 paragraphs per ER physician: Patient had been seen in our offices 2 days before admission, had had abdominal pain and lots of diarrhea and labs were done which revealed extremely low potassium and high creatinine. Patient was contacted by me personally and recommended to come to the ER on the evening of 04/01/2022-but patient declined because of childcare and job responsibilities. I discussed with him the seriousness of his condition. He acknowledged this and was able to come to the ER the next day and work-up was initiated as noted above. He feels much better on rounds today after having IV fluids and less diarrhea. Unfortunately, he continu
[2022-04-05 08:00] VITALS: BP 134/78; PULSE 70; PULSE 79; RESP 16; TEMP 36.4; O2SAT 100
--- NOTE | 2022-04-05 09:25 | HMH.PHAINT1 ---
Pharmacy Intervention Comments: DISCHARGE MEDICATION COUNSELING PROVIDED. DISCUSSED STARTING THE FOLLOWING: -DIAZEPAM (THREE TIMES DAILY, FOR MUSCLE SPASMS, SEDATION AND DECREASED RESPIRATIONS POSSIBLE) -KEPPRA (TWICE DAILY, FOR SEIZURES/MOOD, ANXIETY, VOMITING POSSIBLE) -POTASSIUM (DAILY, TAKE WITH FOOD, MAY CAUSE GI UPSET/N/V/D) PATIENT VERBALIZED NO QUESTIONS AT THIS TIME.
--- NOTE | 2022-04-06 15:25 | SW/DCPLANNER ---
Follow up phone call was made with this patient: patient was able to slate picker all new medications and is aware of his follow up appointment w/ Kim [facility] in [place].
== END 2022-04-05 10:09 | disposition home or self-care (01) | DRG 683 ==
LOC: ER 11:26 → 2ND 15:50
PROVIDERS: Internal Medicine Adolescent Medicine; Admitting Provider Family Medicine; Emergency Provider Emergency Medicine; PCP Internal Medicine Adolescent Medicine; Visit Provider Internal Medicine Adolescent Medicine
DX: N17.9 Acute kidney failure, unspecified (principal); E87.1 Hypo-osmolality and hyponatremia; E86.0 Dehydration; K52.9 Noninfective gastroenteritis and colitis, unspecified; E87.6 Hypokalemia; R56.9 Unspecified convulsions; I10 Essential (primary) hypertension; F17.210 Nicotine dependence, cigarettes, uncomplicated; F10.20 Alcohol dependence, uncomplicated; E66.01 Morbid (severe) obesity due to excess calories; M10.9 Gout, unspecified; Z68.36 Body mass index [BMI] 36.0-36.9, adult; E83.42 Hypomagnesemia; G25.2 Other specified forms of tremor
CPT/HCPCS: 36415; 74176; 76705; 80048; 80053; 81001; 82248; 82962; 83605; 83690; 83735; 84132; 84443; 85025; 87040; 87506; 93005; 99291; C9803; G0378; J3475; U0003; U0005

== ENCOUNTER → 2022-04-09 14:14 | Outpatient (CLI) | payer BC, SELFPAY ==
[2022-04-09 14:48] LABS: Basophils # 0.1 K/mm3 (0-0.2); Basophils % 1.1 % (0.1-2.0); Eosinophils # 0.2 K/mm3 (0.0-0.4); Eosinophils % 2.8 % (0.1-12.0); Hematocrit 33.2 % (42.0-52.0); Hemoglobin 10.8 g/dL (14.1-18.0); Lymphocytes # 1.8 K/mm3 (0.7-4.5); Lymphocytes % 33.2 % (10-50); Mean Corpuscular HGB Conc 32.5 g/dL (31.8-35.4); Mean Corpuscular Hemoglobin 30.1 pg (27.0-31.2); Mean Corpuscular Volume 92.7 fl (80-94); Mean Platelet Volume 7.9 fl (7.4-10.4); Monocytes # 0.3 K/mm3 (0.1-1.0); Monocytes % 6.2 % (1.7-9.3); Neutrophils # 3.1 K/mm3 (1.8-7.8); Neutrophils % 56.7 % (37.0-80.0); Platelet Count 232 K/mm3 (142-424); Red Blood Count 3.59 M/mm3 (4.60-6.20); Red Cell Distribution Width 19.7 % (11.5-17.5); White Blood Count 5.4 K/mm3 (4.8-10.8)
[2022-04-09 15:18] LABS: Alanine Aminotransferase 79 U/L (12-78); Albumin Level 3.4 g/dl (3.5-5.0); Albumin/Globulin Ratio 1.4 (1.1-1.8); Alkaline Phosphatase 53 U/L (38-126); Anion Gap 10.8 mEq/L (5-15); Aspartate Amino Transferase 76 U/L (17-59); Bilirubin,Total 0.2 mg/dl (0.2-1.3); Blood Urea Nitrogen 16 mg/dl (9-20); Calcium 10.2 mg/dl (8.4-10.2); Carbon Dioxide 23 mmol/L (22.0-30.0); Chloride 112 mmol/L (98-107); Estimated Glomerular Filt Rate 76 ml/min (>60); GFR (African American) 92 ML/MIN (>60); Globulin 2.5 g/dL (1.3-3.2); Glucose 94 mg/dl (74-100); Potassium 4.8 mmoL/L (3.5-5.1); Sodium 141 mmol/L (136-145); Total Protein,Serum 5.9 g/dl (6.3-8.2)
[2022-04-09 15:51] LABS: Magnesium 0.5 mg/dl (1.6-2.3)
[2022-04-15 21:28] LABS: Levetiracetam (Keppra) 14.2 ug/mL (10.0-40.0)
== END ==
PROVIDERS: PCP Internal Medicine Adolescent Medicine; Visit Provider Nurse Practitioner Family
DX: E87.6 Hypokalemia (principal); E83.42 Hypomagnesemia; R56.9 Unspecified convulsions; Z87.448 Personal history of other diseases of urinary system
CPT/HCPCS: 36415; 80053; 80177; 83735; 85025

== ENCOUNTER → 2022-04-19 16:50 | Outpatient (CLI) | payer MEDICAID, SELFPAY ==
[2022-04-19 17:13] LABS: Basophils # 0.1 K/mm3 (0-0.2); Basophils % 0.9 % (0.1-2.0); Eosinophils # 0.3 K/mm3 (0.0-0.4); Eosinophils % 4.7 % (0.1-12.0); Hematocrit 28.4 % (42.0-52.0); Hemoglobin 9.4 g/dL (14.1-18.0); Lymphocytes # 1.1 K/mm3 (0.7-4.5); Lymphocytes % 20.9 % (10-50); Mean Platelet Volume 8.4 fl (7.4-10.4); Monocytes # 0.3 K/mm3 (0.1-1.0); Monocytes % 4.8 % (1.7-9.3); Neutrophils # 3.7 K/mm3 (1.8-7.8); Neutrophils % 68.8 % (37.0-80.0); Platelet Count 302 K/mm3 (142-424); Red Blood Count 3.02 M/mm3 (4.60-6.20); White Blood Count 5.4 K/mm3 (4.8-10.8)
[2022-04-19 19:27] LABS: Anion Gap 10.5 mEq/L (5-15); Blood Urea Nitrogen 13 mg/dl (9-20); Calcium 6.9 mg/dl (8.4-10.2); Carbon Dioxide 26 mmol/L (22.0-30.0); Chloride 106 mmol/L (98-107); Estimated Glomerular Filt Rate 85 ml/min (>60); GFR (African American) 103 ML/MIN (>60); Glucose 58 mg/dl (74-100); Potassium 3.5 mmoL/L (3.5-5.1); Sodium 139 mmol/L (136-145); Uric Acid 7.8 mg/dl (3.5-8.5)
[2022-04-19 19:40] LABS: Magnesium 0.7 mg/dl (1.6-2.3)
== END ==
PROVIDERS: PCP Internal Medicine Adolescent Medicine; Visit Provider Nurse Practitioner Family
DX: R60.9 Edema, unspecified (principal); E79.0 Hyperuricemia without signs of inflammatory arthritis and tophaceous disease; E87.6 Hypokalemia; E83.42 Hypomagnesemia
CPT/HCPCS: 36415; 80048; 83735; 84550; 85025

== ENCOUNTER → 2022-04-29 06:56 | Outpatient (CLI) | payer MEDICAID, SELFPAY ==
[2022-04-29 07:55] LABS: Basophils % 0.9 % (0.1-2.0); Eosinophils # 0.3 K/mm3 (0.0-0.4); Eosinophils % 5.1 % (0.1-12.0); Hematocrit 31.7 % (42.0-52.0); Hemoglobin 10.3 g/dL (14.1-18.0); Lymphocytes # 1.4 K/mm3 (0.7-4.5); Lymphocytes % 27.4 % (10-50); Mean Corpuscular HGB Conc 32.3 g/dL (31.8-35.4); Mean Corpuscular Hemoglobin 31.7 pg (27.0-31.2); Mean Platelet Volume 7.4 fl (7.4-10.4); Monocytes # 0.2 K/mm3 (0.1-1.0); Monocytes % 3.7 % (1.7-9.3); Neutrophils # 3.2 K/mm3 (1.8-7.8); Neutrophils % 62.9 % (37.0-80.0); Platelet Count 286 K/mm3 (142-424); Red Blood Count 3.24 M/mm3 (4.60-6.20); Red Cell Distribution Width 19.3 % (11.5-17.5); White Blood Count 5.1 K/mm3 (4.8-10.8)
[2022-04-29 09:02] LABS: Alanine Aminotransferase 17 U/L (12-78); Albumin Level 3.5 g/dl (3.5-5.0); Albumin/Globulin Ratio 1.4 (1.1-1.8); Alkaline Phosphatase 58 U/L (38-126); Anion Gap 12.5 mEq/L (5-15); Aspartate Amino Transferase 33 U/L (17-59); Bilirubin,Total 0.3 mg/dl (0.2-1.3); Blood Urea Nitrogen 14 mg/dl (9-20); Calcium 7.7 mg/dl (8.4-10.2); Carbon Dioxide 25 mmol/L (22.0-30.0); Chloride 107 mmol/L (98-107); Estimated Glomerular Filt Rate 96 ml/min (>60); GFR (African American) 116 ML/MIN (>60); Globulin 2.5 g/dL (1.3-3.2); Glucose 87 mg/dl (74-100); Potassium 3.5 mmoL/L (3.5-5.1); Sodium 141 mmol/L (136-145)
== END ==
PROVIDERS: PCP Internal Medicine Adolescent Medicine; Visit Provider Internal Medicine Adolescent Medicine
DX: E83.51 Hypocalcemia (principal); E83.42 Hypomagnesemia; D50.9 Iron deficiency anemia, unspecified; N17.9 Acute kidney failure, unspecified
CPT/HCPCS: 36415; 80053; 83735; 85025

== ENCOUNTER → 2022-06-23 16:33 | Outpatient (CLI) | payer MEDICAID, SELFPAY ==
[2022-06-23 17:33] LABS: Basophils # 0.1 K/mm3 (0-0.2); Basophils % 1.1 % (0.1-2.0); Eosinophils # 0.5 K/mm3 (0.0-0.4); Eosinophils % 7.8 % (0.1-12.0); Hematocrit 35.2 % (42.0-52.0); Hemoglobin 11.4 g/dL (14.1-18.0); Lymphocytes # 2.4 K/mm3 (0.7-4.5); Lymphocytes % 36.2 % (10-50); Mean Corpuscular HGB Conc 32.2 g/dL (31.8-35.4); Mean Corpuscular Hemoglobin 30.5 pg (27.0-31.2); Mean Corpuscular Volume 94.5 fl (80-94); Mean Platelet Volume 7.6 fl (7.4-10.4); Monocytes # 0.3 K/mm3 (0.1-1.0); Monocytes % 4.2 % (1.7-9.3); Neutrophils # 3.4 K/mm3 (1.8-7.8); Neutrophils % 50.7 % (37.0-80.0); Platelet Count 315 K/mm3 (142-424); Red Blood Count 3.73 M/mm3 (4.60-6.20); Red Cell Distribution Width 16.6 % (11.5-17.5); White Blood Count 6.7 K/mm3 (4.8-10.8)
[2022-06-23 19:01] LABS: Amphetamine/Metha Screen,Urine Negative ng/ml (<1000)
[2022-06-23 19:02] LABS: Alanine Aminotransferase 16 U/L (12-78); Albumin Level 4.3 g/dl (3.5-5.0); Albumin/Globulin Ratio 1.6 (1.1-1.8); Alkaline Phosphatase 47 U/L (38-126); Anion Gap 9.5 mEq/L (5-15); Aspartate Amino Transferase 23 U/L (17-59); Barbiturates Screen,Urine Negative ng/ml (<200); Bilirubin,Total 0.2 mg/dl (0.2-1.3); Blood Urea Nitrogen 21 mg/dl (9-20); Calcium 8.6 mg/dl (8.4-10.2); Carbon Dioxide 29 mmol/L (22.0-30.0); Chloride 104 mmol/L (98-107); Estimated Glomerular Filt Rate 96 ml/min (>60); GFR (African American) 116 ML/MIN (>60); Globulin 2.7 g/dL (1.3-3.2); Glucose 80 mg/dl (74-100); Potassium 3.5 mmoL/L (3.5-5.1); Sodium 139 mmol/L (136-145)
[2022-06-23 19:03] LABS: Benzodiazepines Screen,Urine Positive ng/ml (<200); Cannabinoid Screen,Urine Positive ng/ml (<50)
[2022-06-23 19:04] LABS: Cocaine Screen,Urine Negative ng/ml (<300)
[2022-06-23 19:05] LABS: Methadone Screen,Urine Negative ng/ml (<300); Opiate Screen,Urine Negative ng/ml (<300)
[2022-06-23 19:06] LABS: Phencyclidine Screen,Urine Negative ng/ml (<25)
== END ==
PROVIDERS: PCP Nurse Practitioner Family; Visit Provider Nurse Practitioner Family
DX: F10.10 Alcohol abuse, uncomplicated (principal); D50.9 Iron deficiency anemia, unspecified; E83.51 Hypocalcemia
CPT/HCPCS: 36415; 80053; 80305; 85025

== ENCOUNTER 2023-01-24 12:04 | Emergency (ER) | payer MEDICAID, SELFPAY ==
[2023-01-24 13:35] VITALS: BP 141/75; PULSE 68; RESP 20; TEMP 36.8; O2SAT 99; BMI 44.4
[2023-01-24 13:58] VITALS: BP 141/75; PULSE 68; RESP 20; TEMP 36.8; O2SAT 99
--- NOTE | 2023-01-24 13:58 | EXP.UTC ---
Discharge Plan Disposition Patient Disposition: Home, Self-Care Condition: Good Prescriptions Prescriptions: New methylprednisolone [Medrol (Toro)] 4 mg tablets,dose pack See Rx Instructions .Route .COMPLEX 6 Days Qty: 21 0RF Rx Instructions: taper pack; amoxicillin-pot clavulanate 875-125 mg Tablet 1 tab PO Q12H 7 Days Qty: 14 0RF fluticasone propionate [Flonase Allergy Relief] 50 mcg/actuation spray,suspension 1 - 2 spray intranasal DAILY Qty: 16 0RF Rx Instructions: administer into each nostril daily No Action losartan 50 mg tablet 50 mg PO DAILY omeprazole 20 mg capsule,delayed release(DR/EC) 20 mg PO DAILY Referrals Follow up/Referrals: Alfredo Conrad MD [Primary Care Provider] - See instructions Activity Restrictions/Add. Instructions Additional Instructions/Restrictions: *Monitor Temp, Over the counter Motrin or Tylenol as directed/as needed Tylenol every 4 hours and Motrin every 6 hours (as long as your family doctor has told you that you can take it) for fever or pain. and straight to ER if unable to lower temp less than 101.0 after medication given *Warm salt water gargles may help to soothe the throat *Throat Lozenges? *Warm fluids like tea with honey may help to soothe the throat? *Sleep elevated *Humidifier/Vaporizer *Flonase 2 sprays in each nostril daily but be aware that it may take 2-3 days before you notice improvement Follow up IMMEDIATELY for new or worsening symptoms or no Noticeable improvement over the next 48-72 hours. 911 for difficulty breathing or swallowing Clinical Impressions Clinical Impression: Sinusitis Qualifiers: Sinusitis location: unspecified location Chronicity: unspecified Qualified Code(s): J32.9 - Chronic sinusitis, unspecified Instructions Patient Instructions: DI for Sinusitis, Sinusitis Discharge ED Provider: Nanci Rawls [facility] General Stated complaint: body aches, cough, runny nose, RAYGOZA Mode of Arrival: Ambulatory Source of Information: Patient Limitations: No Limitations Time Seen by Provider: 01/24/23 13:58 Description of Symptoms (Recalled from Triage Doc. by RN): PATIENT C/O HEAD CONGESTION, LIGHT GREEN NASAL DRAINAGE, BODY ACHES, AND LOW-GRADE FEVER SINCE TUESDAY NIGHT HEENT Symptoms (Recalled from RN notes): Yes Resp Symptoms (Recalled from RN notes): No Skin Symptoms (Recalled from RN notes): No MS Symptoms (Recalled from RN notes): No Functional Status (Recalled from RN notes): WNL History of Present Illness Provider Complaint: Patient states that he gets a sinus infection about this time every year States that he has been having sinus congestion and pressure for over a week that has got worse over the last 3-4 days States that today he could feel the pressure behind his eyes so he came in to get checked and get something to help clear it up Related Data Home Medications Medication Instructions Recorded Confirmed losartan 50 mg tablet 50 mg PO DAILY Hypertension 01/24/23 01/24/23 omeprazole 20 mg capsule,delayed 20 mg PO DAILY GERD 01/24/23 01/24/23 release Previous Rx's Medication Instructions Recorded amoxicillin 875 mg-potassium 1 tab PO Q12H 7 days #14 tabs 01/24/23 clavulanate 125 mg tablet fluticasone propionate 50 1 - 2 spray intranasal DAILY #16 01/24/23 mcg/actuation nasal grams spray,suspension (Flonase Allergy Relief) methylprednisolone 4 mg tablets in See Rx Instructions .Route 01/24/23 a dose pack (Medrol (Toro)) .COMPLEX 6 days #21 tabs Allergies Allergy/AdvReac Type Severity Reaction Status Date / Time No Known Drug Allergies Allergy Unknown Verified 07/05/22 11:12 allergy reaction Worker's Comp Is this a Worker's Comp case?: No PFS PFS Disclaimer: The information contained in this section may have been updated after the patient was seen, as this information can be updated by other users. Medical H
== END 2023-01-24 14:15 | disposition home or self-care (01) ==
PROVIDERS: Emergency Provider Nurse Practitioner; PCP Internal Medicine Adolescent Medicine
DX: J01.90 Acute sinusitis, unspecified (principal); K21.9 Gastro-esophageal reflux disease without esophagitis; F17.210 Nicotine dependence, cigarettes, uncomplicated; E66.01 Morbid (severe) obesity due to excess calories; F10.10 Alcohol abuse, uncomplicated
CPT/HCPCS: 99212; 99214; G0463

== ENCOUNTER 2023-04-20 08:18 | Emergency (ER) | payer MEDICAID, SELFPAY ==
[2023-04-20 08:30] VITALS: BP 153/83; PULSE 62; RESP 18; TEMP 37; O2SAT 97; BMI 42.9
--- NOTE | 2023-04-20 09:20 | EXP.UTC ---
Discharge Plan Disposition Patient Disposition: Home, Self-Care Condition: Good Prescriptions Prescriptions: New ondansetron 4 mg tablet,disintegrating 4 mg PO Q8H PRN (Reason: nausea and vomiting) Qty: 10 0RF No Action losartan 50 mg tablet 50 mg PO DAILY omeprazole 20 mg capsule,delayed release(DR/EC) 20 mg PO DAILY Referrals Follow up/Referrals: Alfredo Conrad MD [Primary Care Provider] - See instructions Activity Restrictions/Add. Instructions Additional Instructions/Restrictions: Monitor temperature. Seek treatment if fever develops. Follow-up immediately if new or worse symptoms worsen or no noticeable improvement over 48 hours. Increase fluids such as water, Gatorade, Powerade, juice or Pedialyte with limited formula/dietary in children No food is okay as long as you are drinking. Once ready to eat start bland such as bananas, rice, applesauce, toast. Contagious until no diarrhea, vomiting, fever times 48 hours without medication Avoid antidiarrheals unless told otherwise. Best to let the virus run its course. Follow-up immediately for new or worsening symptoms or no noticeable improvement over the next 48 hours. Clinical Impressions Clinical Impression: Nausea & vomiting Qualifiers: Vomiting type: unspecified Qualified Code(s): R11.2 - Nausea with vomiting, unspecified Diarrhea Qualifiers: Diarrhea type: unspecified type Qualified Code(s): R19.7 - Diarrhea, unspecified Stand Alone Forms Stand Alone Forms: Work/School Release Instructions Patient Instructions: Nausea and Vomiting-Adult Discharge ED [facility] HPI General Stated complaint: stomach ache, vomiting and diarrhea Mode of Arrival: Ambulatory Source of Information: Patient Limitations: No Limitations Time Seen by Provider: 04/20/23 09:23 Description of Symptoms (Recalled from Triage Doc. by RN): Stomach ache, vomiting, and diarrhea. HEENT Symptoms (Recalled from RN notes): Yes Resp Symptoms (Recalled from RN notes): No Skin Symptoms (Recalled from RN notes): No MS Symptoms (Recalled from RN notes): No Functional Status (Recalled from RN notes): n/a History of Present Illness Provider Complaint: 38 yr old male presnets for Stomach ache, vomiting, and diarrhea since yesterday Related Data Home Medications Medication Instructions Recorded Confirmed losartan 50 mg tablet 50 mg PO DAILY Hypertension 01/24/23 04/20/23 omeprazole 20 mg capsule,delayed 20 mg PO DAILY GERD 01/24/23 04/20/23 release Previous Rx's Medication Instructions Recorded ondansetron 4 mg disintegrating 4 mg PO Q8H PRN nausea and 04/20/23 tablet vomiting #10 tabs Allergies Allergy/AdvReac Type Severity Reaction Status Date / Time No Known Drug Allergies Allergy Unknown Verified 04/20/23 08:53 allergy reaction Worker's Comp Is this a Worker's Comp case?: No [facility] Disclaimer: The information contained in this section may have been updated after the patient was seen, as this information can be updated by other users. 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) Smoking Status: Current every day smoker tobacco type: cigarettes packs per day: 1 second hand exposure: Yes alcohol intake: former year quit: 2022 counseling given: Yes substance use type: marijuana counseling given: No current occupational status: employed Travel in the last 8 weeks: None adopted: No caregiver/support person: Yes (he has 2 kids) foster care: No household members: spouse and children housing: house marital status: number of children: 2 number of grandchildren: 0 education level: other details: got a GED; he went to summer school; and they lost his credits; quit Hx Recent Travel: No sexually active: Yes caffeine: Yes physical activity: none special elmer needs: No working smoke detector in home: Yes fire extinguisher in home: Yes carbon monox detector in home: Yes firearms in home: Yes firearms unloaded and locked: Yes do you feel safe at home: Yes victim of physical abuse: No victim of emotional abuse: No victim of sexual abuse: No would you like helpful sources: No ROS Obtained: Yes All systems reviewed & no additional complaints except as documented Constitutional Constitutional: Reports system reviewed and no additional complaints, except as documented and Reports as per HPI Eyes Eyes: Reports system reviewed and no additional complaints, except as documented ENT Ears, Nose, Mouth, and Throat: Reports system reviewed and no additional complaints, except as documented Cardiovascular Cardiovascular: Reports system reviewed and no additional complaints, except as documented Respiratory Respiratory: Reports system reviewed and no additional complaints, except as documented Gastrointestinal Gastrointestingal: Reports system reviewed and no additional complaints, except as documented, as per HPI, abdominal pain, diarrhea, nausea and vomiting Integumentary/Breasts Skin/Breast: Reports system reviewed and no additional complaints, except as documented Endocrine Endocrine: Reports system reviewed and no additional complaints, except as documented Allergic/Immunologic Allergic/Immunologic: Reports system reviewed and no additional complaints, except as documented Physical Exam General General appearance: alert and in no apparent distress Head Head exam: atraumatic Eye Eye exam: Present normal appearance and PERRL ENT ENT exam: Present normal exam, normal oropharynx, mucous membranes moist, TM's normal bilaterally and normal external ear exam Respiratory Respiratory exam: Present normal lung sounds bilaterally; Absent respiratory distress Cardiovascular Cardiovascular exam: Present regular rate and normal rhythm; Absent JVD Abdominal Exam Abdominal exam: Present soft and normal bowel sounds; Absent distention, tenderness or guarding Extremities Exam Extremities exam: Present normal inspection, full ROM and normal capillary refill; Absent calf tenderness Neurological Exam Neurological exam: Present alert and oriented X3 Skin Skin exam: Present warm, dry, intact and normal color Medical Decision Making Medical Records Medical records reviewed: Yes I reviewed the patient's medical records. Naman Inquiry Pt receiving controlled substance: No Naman was queried for this patient: No Vital Signs: 04/20/23 08:30 Temperature 98.6 F Temperature Source Oral Pulse Rate [Right Radial] 62 Respiratory Rate 18 Blood Pressure [Right Arm] 153/83 H Blood Pressure Mean [Right Arm] 106 Blood Pressure Source [Right Arm] Automatic Cuff Blood Pressure Position [Right Arm] Sitting 02 Sat by Pulse Oximetry 97 Oxygen Delivery Method Room Air
[2023-04-20 09:34] VITALS: BP 153/83; PULSE 62; RESP 18; TEMP 37; O2SAT 97
== END 2023-04-20 09:34 | disposition home or self-care (01) ==
PROVIDERS: Emergency Provider Nurse Practitioner Family; PCP Internal Medicine Adolescent Medicine
DX: R10.9 Unspecified abdominal pain (principal); R11.2 Nausea with vomiting, unspecified; R19.7 Diarrhea, unspecified; F17.210 Nicotine dependence, cigarettes, uncomplicated; K21.9 Gastro-esophageal reflux disease without esophagitis
CPT/HCPCS: 99212; 99214; G0463

== ENCOUNTER 2024-02-20 08:23 | Emergency (ER) | payer SELFPAY ==
[2024-02-20 08:50] VITALS: BP 185/114; PULSE 76; RESP 21; TEMP 37.3; O2SAT 97; BMI 44.6
[2024-02-20] MEDS: TETRACAINE/BENZOCAINE/BUTAMBEN 56 GM SPRAY TP (09:11)
[2024-02-20] MEDS: LIDOCAINE 2% VISCOUS SOL 15ML UDC 15 ML PO (09:11)
--- NOTE | 2024-02-20 09:29 | EXP.UTC ---
Discharge Plan Disposition Patient Disposition: Home, Self-Care Condition: Good Prescriptions Prescriptions: New amoxicillin-pot clavulanate 875-125 mg Tablet 1 tab PO Q12H Qty: 20 0RF acetaminophen [Tylenol] 325 mg tablet 325 - 650 mg PO QID PRN (Reason: pain) Qty: 30 0RF No Action losartan 50 mg tablet 50 mg PO DAILY omeprazole 20 mg capsule,delayed release(DR/EC) 20 mg PO DAILY Referrals Follow up/Referrals: Alfredo Conrad MD [Primary Care Provider] - See instructions Activity Restrictions/Add. Instructions Additional Instructions/Restrictions: Call and make appointment with Dentist Take medication as prescribed Use dental balls as prescribed Warm salt water gargles may help to soothe the mouth Clinical Impressions Clinical Impression: Otitis media Instructions Patient Instructions: DI for Tooth Abscess, Tooth Abscess, Amoxicillin and Clavulanic Acid, Middle Ear Infection Print Language Print Language: Croatian Discharge ED Provider: Nanci Rawls [facility] [place] [facility] [place] General Stated complaint: Pain in L ear, Pain bottom left teeth Mode of Arrival: Ambulatory Source of Information: Patient Limitations: No Limitations Time Seen by Provider: 02/20/24 09:29 Description of Symptoms (Recalled from Triage Doc. by RN): PATIENT C/O LEFT EAR PAIN AND POSSIBLE ABSCESS TO LEFT LOWER TOOTH HEENT Symptoms (Recalled from RN notes): Yes Resp Symptoms (Recalled from RN notes): No Skin Symptoms (Recalled from RN notes): No MS Symptoms (Recalled from RN notes): No Functional Status (Recalled from RN notes): WNL History of Present Illness Provider Complaint: Patient states that he has been having pain in his left ear and left lower teeth States he has several broken and decaying teeth on the bottom and has been having some swelling in his left lower jaw on and off so today when it wsnt any better he came in Related Data Home Medications ?Medication ?Instructions ?Recorded ?Confirmed losartan 50 mg tablet 50 mg PO DAILY Hypertension 01/24/23 04/20/23 omeprazole 20 mg capsule,delayed 20 mg PO DAILY GERD 01/24/23 04/20/23 release Previous Rx's ?Medication ?Instructions ?Recorded acetaminophen 325 mg tablet 325 - 650 mg (1 - 2 x 325 mg) PO 02/20/24 (Tylenol) QID PRN pain #30 tabs amoxicillin 875 mg-potassium 1 tab PO Q12H #20 tabs 02/20/24 clavulanate 125 mg tablet Allergies Allergy/AdvReac Type Severity Reaction Status Date / Time No Known Drug Allergies Allergy Unknown Verified 04/20/23 08:53 allergy reaction Worker's Comp Is this a Worker's Comp case?: [facility] Disclaimer: The information contained in this section may have been updated after the patient was seen, as this information can be updated by other users. Medical History (Updated 02/20/24 @ 09:40 by Nanci Rawls APRN) Hypertension Morbid obesity GERD (gastroesophageal reflux disease) Alcoholism Gout Surgical History History of tonsillectomy Family History (Reviewed 04/20/23 @ 09:23 by Anastacio Nicholas ([facility] [[email or web address] [employer]) No significant family history Social History (Reviewed 04/20/23 @ 09:23 by Anastacio Nicholas ([facility] [[email or web address] [employer]) Smoking Status: Current every day smoker tobacco type: cigarettes packs per day: 1 second hand exposure: Yes alcohol intake: former year quit: 2022 counseling given: Yes substance use type: marijuana counseling given: No current occupational status: employed Travel in the last 8 weeks: None adopted: No caregiver/support person: Yes (he has 2 kids) foster care: No household members: spouse and children housing: house marital status: number of children: 2 number of grandchildren: 0 education level: other details: got a GED; he went to summer school; and they lost his credits; quit 10th Hx Recent Travel: No sexually active: Yes caffeine: Yes physical activity: none special elmer needs: No working smoke detector in home: Yes fire extinguisher in home: Yes carbon monox detector in home: Yes firearms in home: Yes firearms unloaded and locked: Yes do you feel safe at home: Yes victim of physical abuse: No victim of emotional abuse: No victim of sexual abuse: No would you like helpful sources: No ROS Obtained: Yes All systems reviewed & no additional complaints except as documented and Yes Systems reviewed as appropriate & no additional complaints except as documented Constitutional Constitutional: Reports system reviewed and no additional complaints, except as documented and Reports as per HPI ENT Ears, Nose, Mouth, and Throat: Reports system reviewed and no additional complaints, except as documented, Reports as per HPI, Reports dental pain and Reports otalgia Cardiovascular Cardiovascular: Reports system reviewed and no additional complaints, except as documented and Reports as per HPI Respiratory Respiratory: Reports system reviewed and no additional complaints, except as documented and Reports as per HPI Gastrointestinal Gastrointestingal: Reports system reviewed and no additional complaints, except as documented and as per HPI Physical Exam General General appearance: alert and in no apparent distress ENT ENT exam: Present mucous membranes moist Expanded ENT Exam TM/Canal exam: Left TM: erythema and bulging Teeth exam: Present dental caries, dental tenderness # and gingival swelling (mild swelling in left lower gumline with several broken and decaying teeth) Respiratory Respiratory exam: Present normal lung sounds bilaterally; Absent respiratory distress or wheezes Cardiovascular Cardiovascular exam: Present regular rate, normal rhythm and normal heart sounds Abdominal Exam Abdominal exam: Present soft and normal bowel sounds; Absent distention or tenderness exam: Present deferred Extremities Exam Extremities exam: Present normal inspection and full ROM; Absent tenderness Neurological Exam Neurological exam: Present alert, oriented X3 and normal gait Medical Decision Making Medical Records Screening: Per USPSTF and CDC recommendations, given the prevalence of disease in our region, it is our hospital?s policy to screen for HIV and viral Hepatitis for all patients aged 18 and over and those with ongoing risk factors. Naman Inquiry Pt receiving controlled substance: No Naman was queried for this patient: No Vital Signs: 02/20/24 08:50 Temperature 99.1 F Temperature Source Oral Pulse Rate [Left Brachial] 76 Respiratory Rate 21 Blood Pressure [Left Arm] 185/114 H Blood Pressure Mean [Left Arm] 137 Blood Pressure Source [Left Arm] Automatic Cuff Blood Pressure Position [Left Arm] Sitting 02 Sat by Pulse Oximetry 97 Oxygen Delivery Method Room Air Orders (Tests/Meds): ED MEDICATIONS Generic Name Dose Route Start Last Admin Trade Name Freq PRN Reason Stop Dose Admin Benzocaine/Butamben/Tetracaine HCl 1 gm 02/20/24 09:00 02/20/24 09:11 Tetracaine/Benzocaine/Butamben 56 Gm [place] [facility] TP 02/20/24 09:01 1 gm ONCE ONE Administration Lidocaine HCl 15 ml 02/20/24 09:00 02/20/24 09:11 Lidocaine 2% Viscous Arlene 15ml Udc PO 02/20/24 09:01 15 ml ONCE ONE Administration
[2024-02-20 09:45] VITALS: BP 185/114; PULSE 76; RESP 21; TEMP 37.3; O2SAT 97
== END 2024-02-20 09:49 | disposition home or self-care (01) ==
PROVIDERS: Emergency Provider Nurse Practitioner; PCP Internal Medicine Adolescent Medicine
DX: H66.93 Otitis media, unspecified, bilateral (principal)
CPT/HCPCS: 99213; G0381